=== PATIENT | female | born 1965 | race American Indian/Alaskan Native ===

== ENCOUNTER 2017-03-18 06:45 | Day surgery (SDC) | payer BC, OTHER ==
[~2017-03-18] VITALS: Ht 154.9 cm; Wt 108.9 kg
[~2017-03-18 06:45] MED LIST: BACTRIM DS TAB1 EACH PO; BENADRYL ALLERG25 MG PO; BYDUREON2 MG SUB-Q; CLARITIN10 MG PO; CLINDAMYCIN HC150 MG PO; DILTIAZEM ER240 MG PO; GLUCOPHAGE1000 MG PO; LANTUS100 UNITS/ SUB-Q; LIPITOR10 MG PO; NORCO 5-325 TA1 EACH PO; SINGULAIR10 MG PO
[2017-03-18] MEDS ORDERED: ASPIR-LOW81 MG PO (07:03)
--- NOTE | 2017-03-18 07:42 | NUR ---
03/18/17 0742 Amrita Flores report from jenni juan.
--- NOTE | 2017-03-19 14:14 | OR ---
[facility] [address], [place] [address] Signed DATE OF PROCEDURE: 03/18/17 PREOPERATIVE DIAGNOSES Screening. Internal hemorrhoids. POSTOPERATIVE DIAGNOSES External anal skin tags x2. Poor bowel prep. PROCEDURE: Limited colonoscopy (40 cm). ESTIMATED BLOOD LOSS: None. INDICATIONS Meghan is a 51-year-old diabetic female, who came to see me for a colonoscopy. She had a colonoscopy at age 40 because of anemia. She had some internal hemorrhoids at that time. She has no lower GI complaints recently. There is no family history of colon cancer or polyps. In the office, I gave her a pamphlet on colonoscopy and we reviewed the nature of the test along with the risks including, but not limited to gas, bloating, crampy abdominal pain, bleeding, perforation requiring surgery, and missed diagnosis. We also discussed the need for IV conscious sedation. She had done well with Versed and Fentanyl previously. She had expressed understanding and wished to proceed. PROCEDURE NOTE Meghan was taken into our endoscopy suite and placed in the left lateral decubitus position. She was given divided doses of 5 mg of Versed and 100 mcg of Fentanyl. A digital rectal exam was performed and this showed a couple of external skin tags. She did have some brown stool in the vault. She told us her prep did not kick in until late at night. We introduced the colonoscope and we carefully advanced it up to 40 cm. We met with copious amounts of liquid stool and we could not see any of the mucosal surfaces. Consequently, it was not safe to pass the scope any further. We had to abandon the colonoscopy. The plan is to repeat the colonoscopy after a double bowel prep. After this, the gas was suctioned out. The colonoscope removed. Meghan tolerated the procedure quite well. RECOMMENDATIONS Meghan will be rescheduled for her colonoscopy and she will need to do a double prep, one in the morning and one in the evening. Electronically Signed By: NIKITA VILLANUEVA MD 03/19/17 1414 PATIENT NAME: MEGHAN SANTOS OPERATIVE REPORT DATE OF : 65 PHYSICIAN: NIKITA VILLANUEVA MD REPORT #: [id number] REPORT IS CONFIDENTIAL AND NOT TO BE RELEASED WITHOUT AUTHORIZATION [address] [address] Signed MD HODA Matt/Modl /[id number] cc: MD Liam Puga MD Electronically Signed By: NIKITA VILLANUEVA MD 03/19/17 1414 PATIENT NAME: MEGHAN SANTOS OPERATIVE REPORT DATE OF : 65 PHYSICIAN: NIKITA VILLANUEVA MD REPORT #: [id number] REPORT IS CONFIDENTIAL AND NOT TO BE RELEASED WITHOUT AUTHORIZATION
[2017-05-07] MEDS ORDERED: CITALOPRAM HBR40 MG PO (16:34)
[2017-05-07] MEDS ORDERED: GLIMEPIRIDE4 MG PO (16:37)
[2017-05-07] MEDS ORDERED: HYDROCHLOROTHIA25 MG PO (16:37)
[2017-05-07] MEDS ORDERED: LEVOTHYROXINE88 MCG PO (16:38)
[2017-05-07] MEDS ORDERED: OMEGA 3 1,0001 EACH PO (16:39)
[2017-05-07] MEDS ORDERED: METOPROLOL SUCC25 MG PO (16:39)
[2017-05-07] MEDS ORDERED: RANITIDINE HCL150 MG PO (16:40)
[2017-05-07] MEDS ORDERED: ROSUVASTATIN CA10 MG PO (16:41)
[2017-05-07] MEDS ORDERED: TOLTERODINE TART4 MG PO (16:41)
[2017-05-07] MEDS ORDERED: VITAMIN D50000 UNI1 PO (16:42)
[2017-05-07] MEDS ORDERED: VICTOZA 2-0.6 MG/0.1 SUB-Q (16:42)
== END 2017-03-18 08:25 | disposition home or self-care (01) ==
LOC: OPS 06:45 → DS 06:45 → OPS 08:25
PROVIDERS: Colon & Rectal Surgery
PROC: 0DJD8ZZ Inspection of Lower Intestinal Tract, Via Natural or Artificial Opening Endoscopic (ICD-10-PCS; principal; 2017-03-18 06:45)
DX: K64.4 Residual hemorrhoidal skin tags (principal); K64.8 Other hemorrhoids; I10 Essential (primary) hypertension; J45.909 Unspecified asthma, uncomplicated; E78.5 Hyperlipidemia, unspecified; E03.9 Hypothyroidism, unspecified; E11.9 Type 2 diabetes mellitus without complications; E87.6 Hypokalemia; F43.22 Adjustment disorder with anxiety; F17.210 Nicotine dependence, cigarettes, uncomplicated; Z90.710 Acquired absence of both cervix and uterus; Z79.82 Long term (current) use of aspirin; Z79.899 Other long term (current) drug therapy; Z79.01 Long term (current) use of anticoagulants; Z98.818 Other dental procedure status; Z98.890 Other specified postprocedural states; Z88.0 Allergy status to penicillin; Z88.8 Allergy status to other drugs, medicaments and biological substances
CPT/HCPCS: 99152; J2250; J3010; J7120

== ENCOUNTER 2018-10-04 20:21 | Emergency (ER) | payer BC, OTHER ==
[~2018-10-04] VITALS: Ht 162.6 cm; Wt 108.9 kg
--- OUTSIDE RECORDS SUMMARY | ~2018-10-04 | XMS | Clinical Summary ---
Demographics + + + | Address | [address] | | | [place] [address] | + + + | Home Phone | | + + + | Preferred Language | Unknown | + + + | Marital Status | Unknown | + + + | Jehovah'S Witness Affiliation | Unknown | + + + | Race | Unknown | + + + | Ethnic Group | Unknown | + + + Author + + + | Author | [facility] | | | and [place] | + + + | Organization | [facility] | | | and [place] | [...] Team Providers + +------+ + | Care Hoof Trimmer Name | Role | Phone | + +------+ + | Prince Penny PA-C | PP | Unavailable | + +------+ + Allergies + + + + + + | Active Allergy | Reactions | Severity | Noted | Comments | | | | | Date | | + + + + + + | Penicillins | Other (See Comments) | Medium | 11/23/19 | Can't remember | | | | | 14 | | + + + + + + Medications + + + +---------+------+------+-------+ | Medication | Sig | Dispensed | Refills | Star | End | Statu | | | | | | t | Date | s | | | | | | Date | | | + + + +---------+------+------+-------+ | ibuprofen (ADVIL, | Take 200 mg by mouth | | 0 | | | Activ | | MOTRIN) 200 mg | as needed. | | | | | e | | tablet | | | | | | | + + + +---------+------+------+-------+ | LOVAZA 1 G capsule | Take by mouth 2 | | 0 | 03/1 | | Activ | | | times daily. | | | 5/20 | | e | | | | | | 14 | | | + + + +---------+------+------+-------+ | ranitidine | Take 150 mg by mouth | | 0 | 04/1 | | Activ | | (ZANTAC) 150 mg | nightly. | | | 8/20 | | e | | tablet | | | | 14 | | | + + + +---------+------+------+-------+ | metoprolol | Take 25 mg by mouth | | 0 | 03/0 | | Activ | | tartrate (LOPRESSOR) | Daily. | | | 5/20 | | e | | 25 mg tablet | | | | 14 | | | + + + +---------+------+------+-------+ | atorvaSTATin | Take 20 mg by mouth | | 0 | 06/0 | | Activ | | (LIPITOR) 20 mg | nightly. | | | 3/20 | | e | | tablet | | | | 14 | | | + + + +---------+------+------+-------+ | ergocalciferol | | | 0 | 06/0 | | Activ | | (VITAMIN D-2) 50,000 | | | | 3/20 | | e | | units capsule | | | | 14 | | | + + + +---------+------+------+-------+ | montelukast | Take 10 mg by mouth | | 0 | 06/0 | | Activ | | (SINGULAIR) 10 mg | nightly. | | | 3/20 | | e | | tablet | | | | 14 | | | + + + +---------+------+------+-------+ | KLOR-CON 10 10 MEQ | Take 10 mEq by mouth | | 0 | 06/0 | | Activ | | CR tablet | Daily. | | | 3/20 | | e | | | | | | 14 | | | + + + +---------+------+------+-------+ | BYDUREON 2 MG SUSR | Inject 2 mg as | | 0 | 05/2 | | Activ | | | directed every 7 | | | 2/20 | | e | | | days. | | | 14 | | | + + + +---------+------+------+-------+ | OMEGA 3 1000 MG | | | 0 | 08/1 | | Activ | | CAPS | | | | 2/20 | | e | | | | | | 14 | | | + + + +---------+------+------+-------+ | LANTUS 100 UNIT/ML | | | 0 | 07/2 | | Activ | | injection | | | | 8/20 | | e | | | | | | 14 | | | + + + +---------+------+------+-------+ | glimepiride | | | 0 | 07/2 | | Activ | | (AMARYL) 4 mg tablet | | | | 8/20 | | e | | | | | | 14 | | | + + + +---------+------+------+-------+ | LORazepam (ATIVAN) | | | 0 | 08/2 | | Activ | | 0.5 mg tablet | | | | 1/20 | | e | | | | | | 14 | | | + + + +---------+------+------+-------+ | Potassium Chloride | | | 0 | 07/2 | | Activ | | (KLOR-CON 10 PO) | | | | 8/20 | | e | | | | | | 14 | | | + + + +---------+------+------+-------+ | DETROL LA 4 MG 24 | | | 0 | 07/2 | | Activ | | hr capsule | | | | 8/20 | | e | | | | | | 14 | | | + + + +---------+------+------+-------+ | citalopram | | | 0 | 10/0 | | Activ | | (CELEXA) 40 mg | | | | 1/20 | | e | | tablet | | | | 14 | | | + + + +---------+------+------+-------+ | | | | 0 | 10/0 | | Activ | | hydrochlorothiazide | | | | 1/20 | | e | | 25 mg tablet | | | | 14 | | | + + + +---------+------+------+-------+ | SINGULAIR 10 MG | | | 0 | 10/0 | | Activ | | tablet | | | | 1/20 | | e | | | | | | 14 | | | + + + +---------+------+------+-------+ | metFORMIN | | | 0 | 09/2 | | Activ | | (GLUCOPHAGE) 500 mg | | | | 7/20 | | e | | tablet | | | | 14 | | | + + + +---------+------+------+-------+ | diltiazem (DILACOR | | | 0 | 09/0 | | Activ | | XR) 240 mg 24 hr | | | | 2/20 | | e | | capsule | | | | 14 | | | + + + +---------+------+------+-------+ | diltiazem (TIAZAC) | | | 0 | 09/0 | | Activ | | 300 MG 24 hr | | | | 2/20 | | e | | capsule | | | | 14 | | | + + + +---------+------+------+-------+ | Levothyroxine | | | 0 | 08/2 | | Activ | | Sodium 88 MCG CAPS | | | | 6/20 | | e | | | | | | 14 | | | + + + +---------+------+------+-------+ Active Problems + + + | Problem | Noted Date | + + + | Carpal tunnel syndrome of right wrist | 11/22/2013 | + + + Family History + + +------+ + | Medical History | Relation | Name | Comments | + + +------+ + | Diabetes | Brother | | | + + +------+ + | Heart disease | Father | | | + + +------+ + | Kidney disease | Father | | | + + +------+ + | Cancer | Mother | | | + + +------+ + | Diabetes | Sister | | | + + +------+ + + +------+ + + | Relation | Name | Status | Comments | + +------+ + + | Brother | | Alive | | + +------+ + + | Father | | Alive | | + +------+ + + | Mother | | | | + +------+ + + | Sister | | Alive | | + +------+ + + Social History + + + [...] + +---------+ + | Alcohol Use | Drinks/We | oz/Week | Comments | | | ek | | | + + +---------+ + | Yes | | | 1 drink every 3 month | + + +---------+ + + [...] recent travel history available. | + + Last Filed Vital Signs + + + + | Vital Sign | Reading | Time Taken | + + + + | Blood Pressure | 116/67 | 01/26/2014 1230 PDT | + + + + | Pulse | 85 | 01/26/2014 1230 PDT | + + + + | Temperature | 37.2 C (99 F) | 03/17/2014 1056 PDT | + + + + | Respiratory Rate | 18 | 01/26/2014 1230 PDT | + + + + | Oxygen Saturation | 99% | 01/26/2014 1230 PDT | + + + + | Inhaled Oxygen | - | - | | Concentration | | | + + + + | Weight | 106.1 kg (234 lb) | 01/26/2014899 PDT | + + + + | Height | 162.6 cm (5' 4") | 01/26/2014899 PDT | + + + + | Body Mass Index | 40.17 | 01/26/2014899 PDT | + + + + Plan of Treatment + + + + + | Health Maintenance | Due Date | Last Done | Comments | + + + + + | Vaccine: | | | | | Dtap/Tdap/Td (1 - | 5 | | | | Tdap) | | | | + + + + + | Cervical Cancer | | | | | Screening (Pap) | 6 | | | + + + + + | Vaccine: Zoster (1 | | | | | of 2) | 6 | | | + + + + + | Vaccine: Influenza | | | | | (Season Ended) | 9 | | | + + + + + Results Not on filefrom Last 3 Months Insurance + +--------+ +--------+ +---------+--------+ | Payer | Benefi | Subscriber | Effect | Phone | Address | Type | | | t Plan | ID | toro | | | | | | / | | Dates | | | | | | Group | | | | | | + +--------+ +--------+ +---------+--------+ | [employer] | [employer] | [id number] | 06/16/19 | [phone] | | PPO | | | [place] BCBS | 7 | 14-Pre | 8 | | | [place] | [place] | | | | | | [place]PO | | | | | | + +--------+ +--------+ +---------+--------+ | [employer] | IHS | [id number] | 09/15/19 | | | Indemn | | SERVICE | YELLOW | | 14-Pre | | | ity | | | [place] | | sent | | | | + +--------+ +--------+ +---------+--------+ + +--------+ +--------+ + + | Guarantor Name | Accoun | Relation to | Date | Phone | Billing Address | | | t Type | Patient | of | | | | | | | | | | + +--------+ +--------+ + + | Meghan Ledesma | Person | Self [birth year] | [address] | | | al/Fam | | 1966 | [phone] | [place] [address] | | | jovan | | | 7 (Home) | | + +--------+ +--------+ + + Advance Directives Patient has advance care planning documents, and code status on file. For more information, please contact:[facility] and [place] [address] + + + + + | Code Status | Date | Date | Comments | | | Activated | Inactivated | | + + + + + | Full Code | 01/26/2014 | 01/26/2014 | | | | 12:27 | 14:52 | | + + + + +
--- OUTSIDE RECORDS SUMMARY | ~2018-10-04 | XMS | Clinical Summary ---
Demographics + + + | Address | [address] | | | [place] [address] | + + + | Home Phone | | + + + | Preferred Language | Unknown | + + + | Marital Status | Single | + + + | Jehovah'S Witness Affiliation | EPI | + + + [...] Phone | + + +---------+ + | EDI SANTOS | ECON | Unknown | | + + +---------+ + Care Team Providers + +------+ + | Care Lidding Machine Operator Name | Role | Phone | + +------+ + PP | Unavailable | + +------+ + Source Comments [facility] is fully live on both [facility] and [facility] Allergies Not on File Current Medications Not on file Active Problems Not on file Social History + +-------+ +--------+------+ | Tobacco [...] on file | | + + + Plan of Treatment + + + + + | Health Maintenance | Due Date | Last Done | Comments | + + + + + | Influenza (Flu) | | | | | vaccination (#1) | 8 | | | + + + + + Results Not on filefrom Last 3 Months"
--- OUTSIDE RECORDS SUMMARY | ~2018-10-04 | XMS | Clinical Summary ---
Demographics + + + | Address | [address] | | | [place] [address] | + + + | Home Phone | | + + + | Preferred Language | Unknown | + + + | Marital Status | Unknown | + + + | Presybeterian Affiliation | Unknown | + + + | Race | Unknown | + + + | Ethnic Group | Unknown | + + + Author + + + | Author | [facility] | | | and [place] | + + + | Organization | [facility] | | | and [place] | [...] Team Providers + +------+ + | Care Vegetable Grower Name | Role | Phone | + [...] +--------+ +---------+--------+ | [employer] | [employer]ENC | [id number] | 06/16/19 | [phone] | | PPO | | | E BCBS | 7 | 14-Pre | 8 | | | | | [place] | | [place] | | | | | | [place]PO | | | | | | + +--------+ +--------+ +---------+--------+ | [employer] | IHS | [id number] | 09/15/19 | | | Indemn | [...] | 1966 | [phone] | [place] [address] | | | jovan | | | 7 (Home) | | + +--------+ +--------+ + + Advance Directives Patient has advance care planning documents, and code status on file. For more information, please contact:[facility] and [place] [phone] + + + + + | Code Status | Date | Date | Comments | | | Activated | Inactivated | | + + + + + | Full Code | 01/26/2014 | 01/26/2014 | | | | 12:27 | 14:52 | | + + + + +
--- OUTSIDE RECORDS SUMMARY | ~2018-10-04 | XMS | Clinical Summary ---
Demographics + + + | Address | [address] | | | [place] [address] | + + + | Home Phone | | + + + | Preferred Language | Unknown | + + + | Marital Status | Single | + + + | Islam Affiliation | EPI | + + + [...] Team Providers + +------+ + | Care Pharmacy Specialist Name | Role | Phone | + +------+ + PP | Unavailable | + +------+ + Source Comments [facility] is fully live on both [facility] and [facility] InPatient.[facility] Allergies Not on File Current Medications Not [...]
[~2018-10-04 20:21] MED LIST changes: +ASPIR-LOW81 MG PO; +CITALOPRAM HBR40 MG PO; +GLIMEPIRIDE4 MG PO; +HYDROCHLOROTHIA25 MG PO; +LEVOTHYROXINE88 MCG PO; +METOPROLOL SUCC25 MG PO; +OMEGA 3 1,0001 EACH PO; +RANITIDINE HCL150 MG PO; +ROSUVASTATIN CA10 MG PO; +TOLTERODINE TART4 MG PO; +VICTOZA 2-0.6 MG/0.1 SUB-Q; +VITAMIN D50000 UNI1 PO
[2018-10-04] MEDS ORDERED: BACTRIM DS TAB1 EACH PO (21:36)
[2018-10-04] MEDS ORDERED: NORCO 5-325 TA1 EACH PO (21:36)
== END 2018-10-04 22:07 | disposition home or self-care (01) ==
LOC: ED 20:21
PROC: 0H9TXZZ (ICD-10-PCS; principal; 2018-10-04)
DX: N61.1 Abscess of the breast and nipple (principal); E11.9 Type 2 diabetes mellitus without complications; I10 Essential (primary) hypertension; F17.200 Nicotine dependence, unspecified, uncomplicated; Z88.8 Allergy status to other drugs, medicaments and biological substances; Z88.0 Allergy status to penicillin; Z79.4 Long term (current) use of insulin; Z79.899 Other long term (current) drug therapy; Z79.82 Long term (current) use of aspirin; Z23 Encounter for immunization
CPT/HCPCS: 10060; 90471; 90715; 99283-25

== ENCOUNTER 2019-02-11 21:27 | Emergency (ER) | payer BC, OTHER ==
[~2019-02-11] VITALS: Ht 162.6 cm; Wt 102.1 kg
[~2019-02-11 21:27] MED LIST changes: +CLEOCIN HCL300 MG PO
--- OUTSIDE RECORDS SUMMARY | 2019-02-11 21:30 | XMS ---
PreManage Notification: KARISSA SANTOS Security Digital Project Coordinator Events No recent Security Events currently on file CRITERIA MET - MACIE[facility] CARE PROVIDERS GUILLERMO SALVADOR Internal Medicine Current PHONE: Unknown Harish Estevez MD Primary Care Current PHONE: Unknown GUILLERMO SALVDAOR Primary Care Current PHONE: Unknown orbilly Alston or Sales Management Intern Current PHONE: Unknown Bronson ESTEVEZ Current PHONE: Unknown Stephanie has no Care Guidelines for this patient. E.DKathleen VISIT COUNT (12 MO.) 2 LENORE Soto TOTAL 2 NOTE: Visits indicate total known visits. ED/UCC VISIT TRACKING (12 MO.) 02/11/2019 21:27 L[facility] Etienne [place] TYPE: Emergency COMPLAINT: - LEFT HIP PAIN, UNKNOWN INJURY 10/04/2018 20:22 [facility] Et[facility] [place] TYPE: Emergency COMPLAINT: - POSS ABCESS ON R BREAST DIAGNOSES: - Allergy status to penicillin - Nicotine dependence, unspecified, uncomplicated - Allergy status to other drugs, medicaments and biological substances status - assisted (current) use of aspirin - Type 2 diabetes mellitus without complications - assisted (current) use of insulin - Other medical terminologist (current) drug therapy - Essential (primary) hypertension - Abscess of the breast and nipple - Encounter for immunization INPATIENT VISIT TRACKING (12 MO.) No inpatient visits to display in this time frame [email or web address]
[2019-02-11] MEDS ORDERED: BACTRIM DS TAB1 EACH PO (22:42)
== END 2019-02-11 22:50 | disposition home or self-care (01) ==
LOC: ED 21:27
DX: M70.72 Other bursitis of hip, left hip (principal); L02.211 Cutaneous abscess of abdominal wall; I10 Essential (primary) hypertension; E11.9 Type 2 diabetes mellitus without complications; F17.200 Nicotine dependence, unspecified, uncomplicated; Z88.0 Allergy status to penicillin; Z88.8 Allergy status to other drugs, medicaments and biological substances; Z79.4 Long term (current) use of insulin; Z79.82 Long term (current) use of aspirin; Z79.899 Other long term (current) drug therapy
CPT/HCPCS: 99283

== ENCOUNTER 2019-04-25 08:26 | Emergency (ER) | payer BC, OTHER ==
[~2019-04-25] VITALS: Ht 162.6 cm; Wt 102.1 kg
--- OUTSIDE RECORDS SUMMARY | ~2019-04-25 | XMS | Encounter Summary ---
Demographics + + + | Address | [address] | | | [place] [address] | + + + | Home Phone | | + + + | Preferred Language | Unknown | + + + | Marital Status | Single | + + + | Christianity Affiliation | EPI | + + + | Race | White | + + + | Ethnic Group | or | + + + Author + + + | Organization | Unknown | + + + | Address | Unknown | + + + | Phone | Unavailable | + + + Support + + +---------+ + | Name | Relationship | Address | Phone | + + +---------+ + | Julisa Ledesma | ECON | Unknown | | + + +---------+ + Care Team Providers + +------+ + | Care Candy Bar Attendant Name | Role | Phone | + +------+ + PCP | Unavailable | + +------+ + Encounter Details +--------+ + + + + | Date | Type | Department | Care Team | Description | +--------+ + + + + | 01/22/ | [facility] | | Letter, Clinic | Letters | | 2004 | scribed | | | | +--------+ + + + + Social History + +-------+ +--------+------+ | Tobacco Use | Types | Packs/Day | Years | Date | | | | | Used | | + +-------+ +--------+------+ | Never Assessed | | | | | + +-------+ +--------+------+ + + + | Sex Assigned at | Date Recorded | | | | + + + | Not on file | | + + + + + + + | Job Start Date | Occupation | Industry | + + + + | Not on file | Not on file | Not on file | + + + + + + + + | Travel History | Travel Start | Travel End | + + + + + + | No recent travel history available. | + + documented as of this encounter Progress Notes Interface, Airplane Navigator In - 01/13/2005 7:32 AM PDT [place] [address] [facility] [place], [place] [id number] or January 23, 2004 Armida Estevez M.D. [facility] [address] [place] [address] RE: MEGHAN LEDESMA MR #: [id number] Dear Dr. Estevez: As you know, we are continuing to follow Ms. Meghan Ledesma. 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 Indeed, since starting the Zyrtec, Zantac, and Singulair therapy and having switched from an EDER inhibitor to a calcium channel ramon, she has been essentially asymptomatic. She notes only a single symptomatic "breakthrough" episode since her last visit 3 months ago and specifically reports markedly increased exercise tolerance. Initially, she was able to tolerate well under 10 minutes of exercise of moderate strenuousness before experiencing severe urticaria, and now she tolerates at least 20 to 30 minutes with only some mild pruritus beginning towards the end of that 30 minutes of moderate substantial exertion. She reports that all of her medications have been well tolerated. She also reports recent travel to [place], and she indicates that it was extremely hot where she was staying in [facility]. Despite the very high temperatures which previously she would have associated with substantial flaring of her urticaria, now on these new medications, she was able to tolerate this well without any apparent difficulty and is quite pleased in this regard. I did receive your letter by FAX today with regard to her hypertension. She does remain hypertensive at today's visit with blood pressure 160/90 despite her diltiazem and hydrochlorothiazide. Certain antihypertensive agents do raise various concerns with regard to her urticaria, and this will be discussed in detail below. Medications: As noted, she remains on Zyrtec 10 mg daily, Zantac 300 mg daily, and Singulair 10 mg daily, all taken in the evening. She is on hydrochlorothiazide and diltiazem for her hypertension. Her only other medications are atorvastatin and oral contraceptives. She continues to carry an EpiPen p.r.n. angioedema/anaphylaxis (no use). ALLERGIES: PENICILLIN. Objective/data: Vital signs: Pulse 74, respirations 16, and blood pressure 160/90. Exam: She is well appearing and in no acute distress. Skin is unremarkable, specifically no urticaria, no angioedema, and no dermatographism noted at today's clinic visit. Her general medical exam is essentially otherwise unremarkable apart from obesity and is as per chart. 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 Recommendations: 1. I am pleased that she has done quite well on her current medication regimen and recommend that she simply continue her current care. She was given prescription refills for her Zyrtec, Zantac, and Singulair. 2. As noted, I do agree that it was beneficial to replace her EDER inhibitor with a calcium channel ramon from the point of view of her urticaria. As noted, she does remain hypertensive at today's clinic visit and with regard to your question of additional agents, I do agree that continuing to avoid EDRE inhibitors and beta blockers would be important if at all possible. With regard to angiotensin-receptor blockers (ARB's), less is known with regard to these agents and possible urticaria, as they are relatively new medications. My experience suggests that these are significantly less likely to increase her urticarial symptoms than either beta blockers or EDER inhibitors, but this is still possible. I have seen a few cases of increased urticarial symptoms presumed associated with the use of angiotensin-receptor blockers. I think it would be reasonable to give this a try, but if so, I would recommend following her clinically rather closely particularly for the first few weeks after starting these agents. If her symptoms do appear to increase, other alternatives may need to be considered. 3. The patient education was again provided and reinforced with regard to issues related to cholinergic urticaria including course, natural history and management, including medications (benefits, risks, side effects, alternatives, medication tapering protocol, etc.) 4. She should return to the routine care of her primary care health provider but is welcome to return to our clinic at any time. I did recommend that she re-contact us should her symptoms recur/worsen. If you or the patient have any questions, please feel free to call us at any time. Again, thank you for allowing us to continue to participate in the care of your patient. Sincerely yours, Damion Hyde M.D. RANDALL GUZMAN [id number] / [id number] / [id number] / Tdocumented in this encounter Plan of Treatment Not on filedocumented as of this encounter Visit Diagnoses Not on filedocumented in this encounter
--- OUTSIDE RECORDS SUMMARY | ~2019-04-25 | XMS | Encounter Summary ---
Demographics + + + | Address | [address] | | | [place] [address] | + + + | Home Phone | | + + + | Preferred Language | Unknown | + + + | Marital Status | Unknown | + + + | Confucianism Affiliation | Unknown | + + + | Race | Unknown | + + + | Ethnic Group | Unknown | + + + Author + + + | Author | [facility] | | | and [place] | + + + | Organization | [facility] | | | and [place] | + + + | Address | Unknown | + + + | Phone | Unavailable | + + + Support + + +---------+ + | Name | Relationship | Address | Phone | + + +---------+ + | Karishma Ledesma | ECON | Unknown | | + + +---------+ + Care Team Providers + +------+ + | Care Cardroom Hand Name | Role | Phone | + +------+ + | Prince Penny PA-C | PCP | | + +------+ + Reason for Visit Auth/Cert +--------+--------+ + + + + | Status | Reason | Specialty | Diagnoses / | Referred By | Referred To | | | | | Procedures | Contact | Contact | +--------+--------+ + + + + | Closed | | | Diagnoses | | | | | | | Carpal | | | | | | | tunnel | | | | | | | syndrome, | | | | | | | right | | | | | | | Carpal | | | | | | | tunnel | | | | | | | syndrome, | | | | | | | right | | | | | | | Procedures | | | | | | | [facility] | | | | | | | MEDIAN | | | | | | | N/CARPAL | | | | | | | TUNNEL SURG | | | | | | | RELEASE | | | | | | | CARPAL | | | | | | | TUNNEL | | | +--------+--------+ + + + + Encounter Details +--------+---------+ + + + | Date | Type | Department | Care Team | Description | +--------+---------+ + + + | 01/26/ | Surgery | [facility] | [facility] | RELEASE CARPAL | | 2013 | | [facility] | MD Amor Brown | TUNNEL - RIGHT | | | | [address] | [place] | | | | | [place] | [address] | | | | | [address] | | | | | | [phone] | | | +--------+---------+ + + + Social History + + + +--------+------+ | Tobacco Use | Types | Packs/Day | Years | Date | | | | | Used | | + + + +--------+------+ | Current Some Day | Cigarettes | 0.1 | 5 | | | Smoker | | | | | + + + +--------+------+ + +---+---+---+ | Smokeless Tobacco: | | | | | Never Used | | | | + +---+---+---+ + + +---------+ + | Alcohol Use | Drinks/Week | oz/Week | Comments | + + +---------+ + | Yes | | | 1 drink every 3 | | | | | month | + + +---------+ + + + + | Sex Assigned at [...] + + documented as of this encounter Last Filed Vital Signs + + + + + | Vital Sign | Reading | Time Taken | Comments | + + + + + | Blood Pressure | 116/67 | 01/26/2014 12:30 PM | | | | | PDT | | + + + + + | Pulse | 85 | 01/26/2014 12:30 PM | | | | | PDT | | + + + + + | Temperature | 36.5 C (97.7 F) | 01/26/2014 11:20 AM | | | | | PDT | | + + + + + | Respiratory Rate | 18 | 01/26/2014 12:30 PM | | | | | PDT | | + + + + + | Oxygen Saturation | 99% | 01/26/2014 12:30 PM | | | | | PDT | | + + + + + | Inhaled Oxygen | - | - | | | Concentration | | | | + + + + + | Weight | 106.1 kg (234 lb) | 01/26/2014 9:00 AM | | | | | PDT | | + + + + + | Height | 162.6 cm (5' 4") | 01/26/2014 9:00 AM | | | | | PDT | | + + + + + | Body Mass Index | 40.17 | 01/26/2014 9:00 AM | | | | | PDT | | + + + + + documented in this encounter Discharge Instructions Instructions Analilia Morgan RN - 01/26/2014Formatting of this note might be different f rom the original. Please keep appointment in Dr Santos's office as already scheduled. Keep splint on right wrist and keep right wrist dry. May discard arm sling in one to two days. Discharge Instructions for Carpal Tunnel Repair You had a carpal tunnel repair procedure to help relieve the symptoms of carpal tunnel synd josé antonio. In carpal tunnel syndrome, a nerve in the wrist is compressed and irritated. This caus es numbness and pain in the fingers and hand. Carpal tunnel repair relieves the compression of the nerve. Here are instructions that will help you care for yourarm and wristwhen yo u are at home. Home Care Avoid gripping objects tightly or lifting with your affected arm. Wear your bandage, splint, or cast as directed by your doctor. Always keep the dressing, splint, or cast dry and clean. When showering, cover your hand and wrist with plastic and tape it securley to your sk into always keep the dressing, splint, or cast dry. Shower as necessary. Use an ice pack or bag of frozen peas or something similar wrapped in a thin towel on your wrist to reduce swelling for the [id number]. Leave the ice pack on [id number]; then take it off [id number]. Repeat as needed. Keep your arm elevated above your heart [id number] after surgery. Do the exercises you learned in the hospital, or as instructed by your doctor. Take pain medication as directed. Don t drive until your doctor says it s OK. Never drive while you are taking narcoti c pain medication. Ask your doctor when youcan return to work. If your job requires heavy lifting, you ma y not be able to begin working again for several weeks. Follow-Up Make a follow-up appointment as directed by our staff. When to Seek Medical Attention Call 911 right awayif you have any of the following: Chest pain Shortness of breath Otherwise, call your doctor immediately if you have any of the following: A splint, cast, or dressing that has gotten wet Increased bleeding or drainage from the incision (cut) Opening of the incision Fever [id number](38.9C) taken by mouth, or shaking chills Any new numbness in the fingers or thumb Blue hand or fingers Increased pain with or without activity Increased redness, tenderness, or swelling of the incision [id number] [facility], [address] [place] [address], [place] [address]. All rights reserve d. This information is not intended as a substitute for professional medical care. Always fo llow your healthcare professional's instructions. Anesthesia: After Your Surgery You ve just had surgery. During surgery, you received medication called anesthesia to deniz p you comfortable and pain-free. After surgery, you may experience some pain or nausea. This is normal. Here are some tips for feeling better and recovering after surgery. Stay on schedule with your medication. Going Home Your doctor or nurse will show you how to take care of yourself when you go home. He or she will also answer your questions. Have an adult family member or friend drive you home. For the first 24 hours after your surgery: Do not drive or use heavy equipment. Do not make important decisions or sign legal documents. Avoid alcohol. Have someone stay with you, if needed. He or she can watch for problems and help keep yo u safe. Be sure to keep all follow-up doctor s appointments. And rest after your procedure for as long as your doctor tells you to. Coping with Pain If you have pain after surgery, pain medication will help you feel better. Take it as direc nura, before pain becomes severe. Also, ask your doctor or pharmacist about other ways to con trol pain, such as with heat, ice, and relaxation. And follow any other instructions your riley rgeon or nurse gives you. Tips for Taking Pain Medication To get the best relief possible, remember these points: Pain medications can upset your stomach. Taking them with a little food may help. Most pain relievers taken by mouth need at least 20 to 30 minutes to take effect. Taking medication on a schedule can help you remember to take it. Try to time your medic ation so that you can take it before beginning an activity, such as dressing, walking, or si tting down for dinner. Constipation is a common side effect of pain medications. Contact your doctor before jackie ing any medications like laxatives or stool softeners to help relieve constipation. Also ask about any dietary restrictions, because drinkinglots of fluids andeating foodslikef ruits and vegetables that are high in fiber can also help. Remember, don t take laxatives unless your surgeon has prescribed them. Mixing alcohol and pain medication can cause dizziness and slow your breathing. It can e ryan be fatal. Don t drink alcohol while taking pain medication. Pain medication can slow your reflexes. Don t drive or operate machinery while taking pain medication. If your health care provider advises you to take acetaminophen, the generic name for Tyleno l and other brand-name pain relievers, to help relieve your pain, ask for a daily dose. Bety mber that acetaminophen or other pain relievers may interact with prescription medicines or other hhwv-myb-lfnhior (OTC) drugs. The FDA recommends reading OTC medication labels careful ly to clearly understand the list of active ingredients, directions, and any precautions to help avoid taking too muchacetaminophen. If you have questions, ask your pharmacist or a [facility] care provider. Managing Nausea Some people have an upset stomach after surgery. This is often due to anesthesia, pain, azalea n medications, or the stress of surgery. The following tips will help you manage nausea and get good nutrition as you recover. If you were on a special diet before surgery, ask your do ctor if you should follow it during recovery. These tips may help: Don t push yourself to eat. Your body will tell you what to eat and when. Start off with clear liquids and soup. They are easier to digest. Progress to semisolids (mashed potatoes, applesauce, and gelatin) as you feel ready. Slowly move to solid foods. Don t eat fatty, rich, or spicy foods at first. Don t force yourself to have three large meals a day. Instead, eat smaller amounts mor e often. Take pain medications with a small amount of solid food, such as crackers or toast to av oid nausea. Call Your Surgeon If You still have pain an hour after taking medication (it may not be strong enough). You feel too sleepy, dizzy, or groggy (medication may be too strong). You have side effects like nausea, vomiting, or skin changes (rash, itching, or hives). [id number] [facility], [address] [place] [address], [place] [address]. All rights reserve d. This information is not intended as a substitute for professional medical care. Always fo llow your healthcare professional's instructions. documented in this encounter Medications at Time of Discharge + + + +---------+ + + | Medication | Sig | Dispensed | Refills | Start | End Date | | | | | | Date | | + + + +---------+ + + | atorvaSTATin | Take 20 mg by mouth | | 0 | 11/17/19 | | | (LIPITOR) 20 mg | nightly. | | | 14 | | | tablet | | | | | | + + + +---------+ + + | BYDUREON 2 MG SUSR | Inject 2 mg as | | 0 | 11/05/19 | | | | directed every 7 | | | 14 | | | | days. | | | | | + + + +---------+ + + | DETROL LA 4 MG 24 | | | 0 | 01/11/20 | | | hr capsule | | | | 14 | | + + + +---------+ + + | ergocalciferol | | | 0 | 11/17/19 | | | (VITAMIN D-2) 50,000 | | | | 14 | | | units capsule | | | | | | + + + +---------+ + + | glimepiride | | | 0 | 01/11/20 | | | (AMARYL) 4 mg tablet | | | | 14 | | + + + +---------+ + + | ibuprofen (ADVIL, | Take 200 mg by mouth | | 0 | | | | MOTRIN) 200 mg | as needed. | | | | | | tablet | | | | | | + + + +---------+ + + | KLOR-CON 10 10 MEQ | Take 10 mEq by mouth | | 0 | 11/17/19 | | | CR tablet | Daily. | | | 14 | | + + + +---------+ + + | LANTUS 100 UNIT/ML | | | 0 | 01/11/20 | | | injection | | | | 14 | | + + + +---------+ + + | LOVAZA 1 G capsule | Take by mouth 2 | | 0 | / | | | | times daily. | | | 14 | | + + + +---------+ + + | metoprolol | Take 25 mg by mouth | | 0 | /11/02 | | | tartrate (LOPRESSOR) | Daily. | | | 14 | | | 25 mg tablet | | | | | | + + + +---------+ + + | montelukast | Take 10 mg by mouth | | 0 | 11/17/19 | | | (SINGULAIR) 10 mg | nightly. | | | 14 | | | tablet | | | | | | + + + +---------+ + + | OMEGA 3 1000 MG | | | 0 | 01/26/20 | | | CAPS | | | | 14 | | + + + +---------+ + + | Potassium Chloride | | | 0 | 01/11/20 | | | (KLOR-CON 10 PO) | | | | 14 | | + + + +---------+ + + | ranitidine | Take 150 mg by mouth | | 0 | 10/02/19 | | | (ZANTAC) 150 mg | nightly. | | | 14 | | | tablet | | | | | | + + + +---------+ + + | Cholecalciferol | | | 0 | 01/11/20 | | | ([facility] VIT D 5000 | | | | 14 | 4 | | HIGH-POTENCY PO) | | | | | | + + + +---------+ + + | citalopram | Take 40 mg by mouth | | 0 | 11/17/19 | | | (CELEXA) 40 mg | Daily. | | | 14 | 4 | | tablet | | | | | | + + + +---------+ + + | DETROL LA 4 MG 24 | Take 4 mg by mouth | | 0 | 11/18/19 | | | hr capsule | Daily. | | | 14 | 4 | + + + +---------+ + + | diltiazem (DILACOR | Take 240 mg by mouth | | 0 | 11/17/19 | | | XR) 240 mg 24 hr | Daily. | | | 14 | 4 | | capsule | | | | | | + + + +---------+ + + | diltiazem (TIAZAC) | Take 300 mg by mouth | | 0 | 11/17/19 | | | 300 MG 24 hr | Daily. | | | 14 | 4 | | capsule | | | | | | + + + +---------+ + + | glimepiride | Take 4 mg by mouth | | 0 | 09/07/19 | | | (AMARYL) 4 mg tablet | every morning | | | 14 | 4 | | | (before breakfast). | | | | | + + + +---------+ + + | | 25 mg Daily. | | 0 | 11/17/19 | | | hydrochlorothiazide | | | | 14 | 4 | | 25 mg tablet | | | | | | + + + +---------+ + + | | Take 1-2 tablets by | 40 | 0 | 01/27/20 | | | HYDROcodone-acetamin | mouth every 6 hours | tablet | | 14 | 4 | | ophen (NORCO) | as needed for Pain | | | | | | 7.5-325 mg per | for up to 10 days. | | | | | | tablet | | | | | | + + + +---------+ + + | | | | 0 | 01/27/20 | | | Hydrocodone-Acetamin | | | | 14 | 4 | | ophen 7.5-300 MG | | | | | | | TABS | | | | | | + + + +---------+ + + | Insulin Glargine | Inject 15 Units | | 0 | 10/15/19 | | | (LANTUS SOLOSTAR SC) | under the skin | | | 14 | 4 | | | nightly. | | | | | + + + +---------+ + + | levothyroxine | Take 88 mcg by mouth | | 0 | 11/17/19 | | | (SYNTHROID, | every morning | | | 14 | 4 | | LEVOTHROID) 88 mcg | (before breakfast). | | | | | | tablet | | | | | | + + + +---------+ + + | LORazepam (ATIVAN) | Take 0.5 mg by mouth | | 0 | 10/30/19 | | | 0.5 mg tablet | every 6 hours as | | | 14 | 4 | | | needed. | | | | | + + + +---------+ + + | metFORMIN | Take 500 mg by mouth | | 0 | 11/20/19 | | | (GLUCOPHAGE) 500 mg | daily (with | | | 14 | 4 | | tablet | breakfast). | | | | | + + + +---------+ + + | ranitidine | | | 0 | 01/11/20 | | | (ZANTAC) 150 MG | | | | 14 | 4 | | capsule | | | | | | + + + +---------+ + + documented as of this encounter Plan of Treatment + +------+--------+ + + | Name | Type | Priori | Associated Diagnoses | Order Schedule | | | | ty | | | + +------+--------+ + + | Basic Metabolic | Lab | STAT | | As Needed for 1 | | Panel | | | | Occurrences starting | | | | | | 01/26/2014 | + +------+--------+ + + documented as of this encounter Procedures + +--------+ + + + | Procedure Name | Priori | Date/Time | Associated Diagnosis | Comments | | | ty | | | | + +--------+ + + + | RELEASE CARPAL | | 01/26/2014 | Carpal tunnel | | | TUNNEL | | 10:14 AM | syndrome, right | | | | | PDT | | | + +--------+ + + + | POC GLUCOSE | Routin | 01/26/2014 | | Results for this | | | e | 10:12 AM | | procedure are in the | | | | PDT | | results section. | + +--------+ + + + documented in this encounter Results POC Glucose (01/26/2014 10:12 AM PDT) + +---------+ + + + | Component | Value | Ref Range | Performed | Pathologist | | | | | At | Signature | + +---------+ + + + | Glucose, | 241 (H) | 79 - 150 mg/dL | [facility] | | [facility] | | | [facility] | | [facility] | | | | [facility] - | | | | | | LABORATORY | | + +---------+ + + + + + | Specimen | + + | Blood | + + + + + + + | Performing | Address | City/State/Zipcode | Phone Number | | Organization | | | | + + + + + | [facility] | [address] | [place] | [phone] | | [facility] | | [address] | | | - LABORATORY | | | | + + + + + | [facility] | [address] | [place] | | | [facility] | | [address] | | | - LABORATORY | | | | + + + + + Urinalysis with Microscopic with Culture if Indicated (01/24/2014 10:37 AM PDT) + + + + + + | Component | Value | Ref Range | Performed | Pathologist | | | | | At | Signature | + + + + + + | Color | Yellow | Light Yellow, | [facility] | | | | | Yellow | [facility] | | | | | | [facility] | | | | | | [facility] - | | | | | | LABORATORY | | + + + + + + | Clarity | Clear | Clear | [facility] | [facility] | [facility] | | | | | [facility] - | | | | | | LABORATORY | | + + + + + + | pH, Urine | 6.0 | 5.0 - 8.0 | [facility] | | | | | [facility] | | [facility] | [facility] | | | | | | C[facility] - | | | | | | LABORATORY | | + + + + + + | Specific | 1.010 | 1.001 - 1.030 | [facility] | | | [place] | | | [facility] | | | | | | [facility] | | | | | | CENTER - | | | | | | LABORATORY | | + + + + + + | Protein, | Negative | Negative, | [facility] | | | Urine | | Trace, 30 mg/dL | [facility] | | | | | | [facility]ICAL | | | | | | CENTER - | | | | | | LABORATORY | | + + + + + + | Blood, | Large (A) | Negative | [facility] | | | Urine | | | [facility] | | | | | | [facility] | | | | | | CENTER - | | | | | | LABORATORY | | + + + + + + | Glucose, | >1000 mg/dL (A) | Negative | [facility] | | | Urine | | | [facility] | | | | | | [facility] | | | | | | CENTER - | | | | | | LABORATORY | | + + + + + + | Ketones, | Negative | Negative | [facility] | | | Urine | | | [facility] | | | | | | [facility] | | | | | | CENTER - | | | | | | LABORATORY | | + + + + + + | Bilirubin, | Negative | Negative | [facility] | | | Urine | | | [facility] | | | | | | [facility] | | | | | | CENTER - | | | | | | LABORATORY | | + + + + + + | Nitrite, | Negative | Negative | [facility] | | | Urine | | | [facility] | | | | | | [facility] | | | | | | CENTER - | | | | | | LABORATORY | | + + + + + + | Leukocyte | Small (A) | Negative | [facility] | | | Esterase, | | | [facility] | | | Urine | | | MEDICAL | | | | | | CENTER - | | | | | | LABORATORY | | + + + + + + | Urobilinoge | 0.2 E.U./dL | 0.2 E.U./dL | [facility] | | | n, Urine | | | [facility] | | | | | | MEDICAL | | | | | | CENTER - | | | | | | LABORATORY | | + + + + + + | WBC UA | 5-10 (A) | 0 - 2 /HPF | [facility] | | | | | [facility] | | | | | | [facility] | | | | | | CENTER - | | | | | | LABORATORY | | + + + + + + | RBC UA | 15-25 (A) | 0 - 2 /HPF | [facility] | | | | | [facility] | | | | | | [facility] | | | | | | CENTER - | | | | | | LABORATORY | | + + + + + + | SQUAMOUS | 5-10 (A) | 0 - 2 /LPF | [facility] | | | EPITHELIAL | | | [facility] | | | UA | | | MEDICAL | | | | | | CENTER - | | | | | | LABORATORY | | + + + + + + | BACTERIA UA | 2+ (A) | Negative /HPF | [facility] | | | | | | [facility] | | | | | | [facility]ICAL | | | | | | CENTER - | | | | | | LABORATORY | | + + + + + + | URINE | Urine Culture Set Up | | [facility] | | | COMMENT | | | [facility] | | | | | | [facility] | | | | | | CENTER - | | | | | | LABORATORY | | + + + + + + + + | Specimen | + + | Urine | + + + + + + + | Performing | Address | City/State/Zipcode | Phone Number | | Organization | | | | + + + + + | [facility] | [address] | [place] | [phone] | | [facility] | | [address] | | | - LABORATORY | | | | + + + + + | [facility] | [address] | [place] | | | [facility] | | [address] | | | - LABORATORY | | | | + + + + + Comprehensive Metabolic Panel (01/24/2014 10:17 AM PDT) + + + + + + | Component | Value | Ref Range | Performed | Pathologist | | | | | At | Signature | + + + + + + | Na | 133 (L) | 136 - 149 | [facility] | | | | | mmol/L | [facility] | | | | | [facility] | | | | | | CENTER - | | | | | | LABORATORY | | + + + + + + | K | 4.1 | 3.5 - 5.1 | [facility] | | | | | mmol/L | [facility] | | | | | | MEDICAL | | | | | | CENTER - | | | | | | LABORATORY | | + + + + + + | Cl | 98 | 98 - 109 mmol/L | [facility] | | | | | | [facility] | | | | | | [facility] | | | | | | CENTER - | | | | | | LABORATORY | | + + + + + + | CO2 | 23 (L) | 24 - 31 mmol/L | [facility] | | | | | | [facility] | | | | | | [facility] | | | | | | CENTER - | | | | | | LABORATORY | | + + + + + + | Anion Gap | 12 | 3 - 16 mmol/L | [facility] | | | | | [facility] | | | | | | [facility] | | | | | | CENTER - | | | | | | LABORATORY | | + + + + + + | Glucose | 341 (H) | 70 - 109 mg/dL | [facility] | | | | | [facility] | | | | | | [facility] | | | | | | CENTER - | | | | | | LABORATORY | | + + + + + + | BUN | 6 (L) | 7 - 18 mg/dL | [facility] | | | | | | [facility] | | | | | | [facility] | | | | | | CENTER - | | | | | | LABORATORY | | + + + + + + | Creatinine | 0.59 (L) | 0.60 - 1.30 | [facility] | | | | | mg/dL | [facility] | | | | | | MEDICAL | | | | | | CENTER - | | | | | | LABORATORY | | + + + + + + | eGFR if not | >60Comment: GLOMERULAR | >=60 | [facility] | | | | FILTRATION | mL/min/1.73m2 | [facility] | | | [place] | RATE,ESTIMATED | | MEDICAL | | | | mL/min/1.69n7Fmyh than | | CENTER - | | | | 60 Chronic kidney | | LABORATORY | | | | disease,if found over a | | | | | | 3-month period.Less than | | | | | | 15 Kidney failureFor | | | | | | | | | | | | Americans,multiply the | | | | | | calculated GFR by 1.21. | | | | | | | | | | + + + + + + | Calcium | 9.0 | 8.3 - 10.5 | [facility] | | | | | mg/dL | [facility] | | | | | | [facility] | | | | | | CENTER - | | | | | | LABORATORY | | + + + + + + | Albumin | 3.5 | 3.2 - 5.0 g/dL | [facility] | | | | | | [facility] | | | | | | [facility] | | | | | | CENTER - | | | | | | LABORATORY | | + + + + + + | Bilirubin | 0.7 | 0.1 - 1.5 mg/dL | [facility] | | | Total | | | [facility] | | | | | | [facility]ICAL | | | | | | CENTER - | | | | | | LABORATORY | | + + + + + + | Total | 6.9 | 6.0 - 7.8 g/dL | [facility] | | | Protein | | | [facility] | | | | | | MEDICAL | | | | | | CENTER - | | | | | | LABORATORY | | + + + + + + | AST | 27 | 10 - 42 U/L | [facility] | | | | | | [facility] | | | | | | MEDICAL | | | | | | CENTER - | | | | | | LABORATORY | | + + + + + + | ALT | 27 | 6 - 45 U/L | [facility] | | | | | | [facility] | | | | | | [facility]ICAL | | | | | | CENTER - | | | | | | LABORATORY | | + + + + + + | Alkaline | 87 | 40 - 110 U/L | [facility] | | | Phosphatase | | | [facility] | | | | | | MEDICAL | | | | | | CENTER - | | | | | | LABORATORY | | + + + + + + | Globulin | 3.4 | g/dL | [facility] | | | | | | [facility] | | | | | | [facility] | | | | | | CENTER - | | | | | | LABORATORY | | + + + + + + | Albumin/Larissa | 1.0 | | [facility] | | | bulin Ratio | | | [facility] | | | | | | MEDICAL | | | | | | CENTER - | | | | | | LABORATORY | | + + + + + + | BUN/Creatin | 10.2 | | [facility] | | | ine Ratio | | | [facility] | | | [facility] | | [facility] | | | | | | CENTER - | | | | | | LABORATORY | | + + + + + + + + | Specimen | + + | Blood | + + + + + + + | Performing | Address | City/State/Zipcode | Phone Number | | Organization | | | | + + + + + | [facility] | [address] | [place] | [phone] | | [facility] | | [address] | | | - LABORATORY | | | | + + + + + | [facility] | [address] | [place] | | | [facility] | | [address] | | | - LABORATORY | | | | + + + + + CBC with Differential (01/24/2014 10:17 AM PDT) + +-------+ + + + | Component | Value | Ref Range | Performed | Pathologist | | | | | At | Signature | + +-------+ + + + | WBC | 8.4 | 4.0 - 11.0 K/uL | [facility] | | | | | | [facility] | | | | | [facility] | | | | | | C[facility] - | | | | | | LABORATORY | | + +-------+ + + + | RBC | 5.03 | 3.70 - 5.20 | [facility] | | | | | M/uL | [facility] | | | | | | MED[facility] | | | | | | CENTER - | | | | | | LABORATORY | | + +-------+ + + + | Hemoglobin | 14.2 | 11.5 - 16.0 | [facility] | | | | | g/dL | [facility] | | [facility] | | | [facility] | | | | | | C[facility] - | | | | | | LABORATORY | | + +-------+ + + + | Hematocrit | 42.4 | 34.0 - 47.0 % | [facility] | | | | | | [facility] | | | | | | [facility] | | | | | | C[facility] - | | | | | | LABORATORY | | + +-------+ + + + | MCV | 84.3 | 83.0 - 101.0 fL | [facility] | | | | | | [facility] | | | | | | [facility] | | | | | | C[facility] - | | | | | | LABORATORY | | + +-------+ + + + | MCH | 28.3 | 28.0 - 35.0 pg | [facility] | | | | | | [facility] | | | | | | [facility] | | | | | | CENTER - | | | | | | LABORATORY | | + +-------+ + + + | MCHC | 33.6 | 32.0 - 36.0 | [facility] | | | | | g/dL | [facility] | | | | | | [facility] | | | | | | CENTER - | | | | | | LABORATORY | | + +-------+ + + + | RDW-CV | 13.3 | <15.0 % | [facility] | | [facility] | | [facility] - | | | | | | LABORATORY | | + +-------+ + + + | Platelet | 332 | 140 - 440 K/uL | [facility] | | | Count | | | [facility] | | [facility] | [facility] | [facility] | [facility] | [facility] - | | | | | | LABORATORY | | + +-------+ + + + | MPV | 7.8 | fL | [facility] | [facility] | [facility] | | | [facility] | | [facility] - | | | | | | LABORATORY | | + +-------+ + + + | % | 58.3 | 45.0 - 82.0 % | [facility] | | | Neutrophils | | | [facility] | [facility] | [facility] | | | | | | CENTER - | | | | | | LABORATORY | | + +-------+ + + + | % | 30.3 | 20.0 - 45.0 % | [facility] | | | Lymphocytes | | | [facility] | [facility] | [facility] | | | | | | C[facility] - | | | | | | LABORATORY | | + +-------+ + + + | % Monocytes | 6.1 | 4.0 - 12.0 % | [facility] | | | [facility] | [facility] | | | | | | [facility] - | | | | | | LABORATORY | | + +-------+ + + + | % | 4.7 | 0.0 - 5.0 % | [facility] | | | Eosinophils | | | [facility] | | | | | | [facility] | | | | | | CENTER - | | | | | | LABORATORY | | + +-------+ + + + | % Basophils | 0.6 | 0.0 - 1.0 % | [facility] | | | [facility] | [facility] | | | | | | [facility] - | | | | | | LABORATORY | | + +-------+ + + + | Absolute | 4.90 | 1.80 - 8.50 | [facility] | | | Neutrophils | | K/uL | [facility] | | [facility] | | | | | | [facility] - | | | | | | LABORATORY | | + +-------+ + + + | Absolute | 2.50 | 0.60 - 3.20 | [facility] | | | Lymphocytes | | K/uL | [facility] | [facility] | | | | | | [facility] - | | | | | | LABORATORY | | + +-------+ + + + | Absolute | 0.50 | 0.00 - 1.00 | [facility] | | | Monocytes | | K/uL | [facility] | | | | | | [facility] | | | | | | CENTER - | | | | | | LABORATORY | | + +-------+ + + + | Absolute | 0.40 | 0.00 - 0.40 | [facility] | | | Eosinophils | | K/uL | [facility] | | | | | | [facility] | | | | | | CENTER - | | | | | | LABORATORY | | + +-------+ + + + | Absolute | 0.10 | 0.00 - 0.10 | [facility] | | | Basophils | | K/uL | [facility] | | | | | | [facility] | | | | | | CENTER - | | | | | | LABORATORY | | + +-------+ + + + + + | Specimen | + + | Blood | + + + + + + + | Performing | Address | City/State/Zipcode | Phone Number | | Organization | | | | + + + + + | [facility] | [address] | [place] | [phone] | | [facility] | | [address] | | | - LABORATORY | | | | + + + + + | [facility] | [address] | [place] | | | [facility] | | [address] | | | - LABORATORY | | | | + + + + + documented in this encounter Visit Diagnoses + + | Diagnosis | + + | Carpal tunnel syndrome, right Carpal tunnel syndrome | + + documented in this encounter Administered Medications + +---------+ +--------+ +------+ | Medication Order | MAR | Action | Dose | Rate | Site | | | Action | Date | | | | + +---------+ +--------+ +------+ | lactated ringers (LR) infusion | New Bag | 01/27/20 | 1,000 | 50 mL/hr | | | at 10-100 mL/hr, Intravenous, | | 14 10:02 | mLs | | | | CONTINUOUS, Starting 01/26/14 | | AM PDT | | | | | at 0945, TKO., Pre-op | | | | | | + +---------+ +--------+ +------+ +---+---+ | | | +---+---+ + +-------+ +-------+---+ + | ropivacaine (NAROPIN) 5 mg/mL | Given | 08/13/20 | 5 mLs | | Surgical | | (0.5%) injection PRN, Starting | | 14 10:56 | | | Site | | Fri01/26/14 at 1056, Intra-op | | AM PDT | | | | + +-------+ +-------+---+ + +---+---+ | | | +---+---+ + +---------+ +--------+---+ + | scopolamine (TRANSDERM-SCOP) | Patch | 01/27/20 | 1.5 mg | | Ear-Behi | | patch 1.5 mg 1.5 mg (1 patch), | Applied | 14 10:00 | | | nd Left | | Transdermal, EVERY 72 HOURS, | | AM PDT | | | | | First dose on Fri01/26/14 at | | | | | | | 0945, DO NOT CUT patch. (If | | | | | | | patch needed, use occlusive | | | | | | | dressing to expose only of | | | | | | | patch to skin.), Pre-op | | | | | | + +---------+ +--------+---+ + +---+---+ | | | +---+---+ documented in this encounter
--- OUTSIDE RECORDS SUMMARY | ~2019-04-25 | XMS | Encounter Summary ---
Demographics + + + | Address | [address] | | | [place] [address] | + + + | Home Phone | | + + + | Preferred Language | Unknown | + + + | Marital Status | Unknown | + + + | Synagogue Affiliation | Unknown | + + + | Race | Unknown | + + + | Ethnic Group | Unknown | + + + Author + + + | Author | [facility] | | | and [place] | + + + | Organization | [facility] | | | and [...] Team Providers + +------+ + | Care Market Garden Worker Name | Role | Phone | + [...] | | | | | | | [facility] | | | | | | | MEDIAN | | | | | | | N/CARPAL | | | | | | | TUNNEL SURG | | | | | | | RELEASE | | | | | | | CARPAL | | | | | | | TUNNEL | | | +--------+--------+ + + + + Encounter Details +--------+ + + + + | Date | Type | Department | Care Team | Description | +--------+ + + + + | 01/26/ | Anesthesia | [facility] | [facility] | | | 2013 | Event | [facility] | MD Nabor [address] | | | | | [address] | [address] [place] | | | | | [place] | [id number] | | | | | [address] | | | | | | [phone] | | | +--------+ + + + + Anesthesia Record + + + + + | Procedure Name | Responsible | Anesthesia Start | Anesthesia Stop Time | | | Anesthesiologist | Time | | + + + + + | RE[facility]AL | [facility], | 01/26/14 1028 | 01/26/14 1121 | | TUNNEL - RIGHT | MD | | | | (Right Wrist) | | | | + + + + + +----+---+ + + | Da | T | Event | Comment | | te | i | | | | | m | | | | | e | | | +----+---+ + + | 08 | 1 | | | | /1 | 0 | | | | 3/ | 2 | | | | 20 | 5 | | | | 14 | | | | +----+---+ + + | | 1 | An Checkout | Pre-use anesthesia machine/equipment checkout. | | | 0 | | | | | 2 | | | | | 5 | | | +----+---+ + + | | 1 | An Start | Reassessment prior to anesthesia induction/procedure. | | | 0 | | | | | 2 | | | | | 8 | | | +----+---+ + + | | 1 | An Start | | | | 0 | Data | | | | 2 | | | | | 9 | | | +----+---+ + + | | 1 | Antibiotic | | | | 0 | Given | | | | 2 | | | | | 9 | | | +----+---+ + + | | 1 | Preoxygenat | | | | 0 | ed | | | | 2 | | | | | 9 | | | +----+---+ + + | | 1 | An | | | | 0 | Induction | | | | 3 | | | | | 2 | | | +----+---+ + + | | 1 | An | | | | 0 | Intubation | | | | 3 | | | | | 9 | | | +----+---+ + + | | 1 | Breathing | | | | 1 | Spontaneous | | | | 0 | ly | | | | 5 | | | +----+---+ + + | | 1 | Moving | | | | 1 | Purposefull | | | | 0 | y | | | | 5 | | | +----+---+ + + | | 1 | Extubated | | | | 1 | Awake | | | | 0 | | | | | 5 | | | +----+---+ + + | | 1 | an stop | | | | 1 | data | | | | 1 | | | | | 4 | | | +----+---+ + + | | 1 | An Stop | Patient handed off to recovery nurse. | | | 2 | | | | | 1 | | | +----+---+ + + +------+ | Meds | +------+ + +---------+ | Name | Total | + +---------+ | midazolam | 2 mg | + +---------+ | fentaNYL | 100 mcg | + +---------+ | lidocaine 2% (PF) | 50 mg | + +---------+ | propofol | 500 mg | + +---------+ | dexamethasone | 5 mg | + +---------+ | ondansetron | 4 mg | + +---------+ | ceFAZolin in dextrose (ANCEF) | 2 g | | IVPB 2 g | | + +---------+ | lactated ringers (LR) infusion | 900 mL | + +---------+ + + | Name | + + | N2O Flow Rate (L/Min) | + + | O2 Flow Rate (L/Min) | + + | Insp O2 | + + | Exp SEV | + + | Air Flow Rate (L/Min) | + + + + | No blood administrations on file. | + + +--------+ + + + | Type | Details | Placement | Removal | +--------+ + + + | Airway | Mask Ventilation: EZ w/OA; Airway | 01/26/14 1053 by | 01/26/14 1105 by | | | Grade: III; Attempts: 1; Airway | | [facility], | | | Type: laryngeal mask; Size: 4; | | MD | | | Tube Reference Point: secure and | | | | | patent; Trauma: none; Placement | | | | | Check: verified by capnography; | | | | | Placed By: Anesthesiologist; | | | | | Removal: per protocol; Removal | | | | | Date: 01/26/14; Removal Time: | | | | | 1105 | | | +--------+ + + + | Read | 01/26/14; 1056; Right; wrist; | 01/26/14 1056 by | 09/08/18 1342 by | | only - | healing within expectations; | Laura Morales RN | User Epic | | | 09/08/18 (Completed/Removed by | | | | [employer] | Utility); 1342 (Completed/Removed | | | | on | by Utility) | | | +--------+ + + + documented in this encounter Social History + + + +--------+------+ | [...] as of this encounter Plan of Treatment Not on filedocumented as of this encounter Visit Diagnoses Not on filedocumented in this encounter Administered Medications + +--------+ +------+------+------+ | Medication Order | MAR | Action | Dose | Rate | Site | | | Action | Date | | | | + +--------+ +------+------+------+ | ceFAZolin in dextrose (ANCEF) | Given | 01/27/20 | 2 g | | | | IVPB 2 g 2 g, Intravenous, | | 14 10:29 | | | | | Administer over 30 Minutes, Prior | | AM PDT | | | | | to Incision, Starting Wed | | | | | | | 01/26/14 at 0917, For 1 dose, 30 | | | | | | | minutes prior to surgery., Pre-op | | | | | | + +--------+ +------+------+------+ +---+---+ | | | +---+---+ + +-------+ +------+---+---+ | dexamethasone (DECADRON) 10 | Given | 01/27/20 | 5 mg | | | | mg/mL injection Intravenous, | | 14 10:48 | | | | | PRN, Starting Fri01/26/14 at | | AM PDT | | | | | 1048, Anesthesia Intra-op | | | | | | + +-------+ +------+---+---+ +---+---+ | | | +---+---+ + +-------+ +--------+---+---+ | fentaNYL injection PRN, Pain, | Given | 01/27/20 | 50 mcg | | | | Starting Fri01/26/14 at 1029, | | 14 10:30 | | | | | Anesthesia Intra-op | | AM PDT | | | | + +-------+ +--------+---+---+ +-------+ +--------+---+---+ | Given | 01/27/20 | 50 mcg | | | | | 14 10:29 | | | | | | AM PDT | | | | +-------+ +--------+---+---+ +---+---+ | | | +---+---+ + +-------+ +-------+---+---+ | lidocaine (PF) 2% injection | Given | 01/27/20 | 50 mg | | | | PRN, Starting Fri01/26/14 at | | 14 10:29 | | | | | 1029, Anesthesia Intra-op | | AM PDT | | | | + +-------+ +-------+---+---+ +---+---+ | | | +---+---+ + +-------+ +------+---+---+ | midazolam (VERSED) 1 mg/mL | Given | 01/27/20 | 2 mg | | | | injection Intravenous, PRN, | | 14 10:29 | | | | | Anxiety, Starting Fri01/26/14 at | | AM PDT | | | | | 1029, Anesthesia Intra-op | | | | | | + +-------+ +------+---+---+ +---+---+ | | | +---+---+ + +-------+ +------+---+---+ | ondansetron (ZOFRAN) injection | Given | 01/27/20 | 4 mg | | | | PRN, Nausea, Vomiting, Starting | | 14 10:48 | | | | | Fri01/26/14 at 1048, Anesthesia | | AM PDT | | | | | Intra-op | | | | | | + +-------+ +------+---+---+ +---+---+ | | | +---+---+ + +-------+ +--------+---+---+ | propofol (DIPRIVAN) injection | Given | 01/27/20 | 100 mg | | | | PRN, Starting Fri01/26/14 at | | 14 10:33 | | | | | 1029, Anesthesia Intra-op | | AM PDT | | | | + +-------+ +--------+---+---+ +-------+ +--------+---+---+ | Given | 01/27/20 | 200 mg | | | | | 14 10:31 | | | | | | AM PDT | | | | +-------+ +--------+---+---+ | Given | 01/27/20 | 200 mg | | | | | 14 10:29 | | | | | | AM PDT | | | | +-------+ +--------+---+---+ +---+---+ | | | +---+---+ documented in this encounter"
--- OUTSIDE RECORDS SUMMARY | ~2019-04-25 | XMS | Encounter Summary ---
Demographics + + + | Address | [address] | | | [place] [address] | + + + | Home Phone | | + + + | Preferred Language | Unknown | + + + | Marital Status | Unknown | + + + | Episcopal Affiliation | Unknown | + + + | Race | Unknown | + + + | Ethnic Group | Unknown | + + + Author + + + | Author | [facility] | | | and [place] | + + + | Organization | [facility] | | | and [...] Team Providers + +------+ + | Care Tension Worker Name | Role | Phone | [...] | | | | | | | [facility] | | | | | | [...] RIGHT | | | | [address] | [place] | | | | | [place] | [address] | | | | | [address] | | | | | | [phone] | | | +--------+---------+ + + + [...] your wrist to reduce swelling for the [id number]. Leave the ice pack on [id number] nutes; then take it off [id number]. Repeat as needed. Keep your arm elevated above your heart [id number] after surgery. Do the exercises you learned [...] incision (cut) Opening of the incision Fever [id number](38.9C) taken by mouth, or shaking chills Any new numbness in the fingers or thumb Blue hand or fingers Increased pain with or without activity Increased redness, tenderness, or swelling of the incision [id number] [facility], [address] [place] [address], [place] [address]. All rights reserve d. This information is [...] may interact with prescription medicines or other hxzw-uoc-zpmmqre (OTC) drugs. The FDA recommends reading OTC medication labels careful ly to clearly understand the list of active ingredients, directions, and any precautions to help avoid taking too muchacetaminophen. If you have questions, ask your pharmacist or a [facility] care provider. Managing Nausea Some people have [...] or skin changes (rash, itching, or hives). 3892-6053 [facility], [address] [place] [address], [place] [address]. All rights reserve d. This information is [...] + | [facility] | [address] | [place] | [phone] | | [facility] | | [address] | | | - LABORATORY | | | | + + + + + | [facility] | [address] | [place] | | | [facility] | | [address] | | | - LABORATORY | | [...] - 1.030 | [facility] | | | [place] | | | [facility] | | [...] + | [facility] | [address] | [place] | [phone] | | [facility] | | [address] | | | - LABORATORY | | | | + + + + + | [facility] | [address] | [place] | | | [facility] | | [address] | | | - LABORATORY | | [...] | mL/min/1.73m2 | [facility] | | | MALAWIAN | RATE,ESTIMATED | | MEDICAL | | | | mL/min/1.83g2Gwma than | | CENTER - | | [...] | | Total | | | [facility] | | | | | | MEDICAL [...] [address] | [place] | [phone] | | [facility] | | [address] | | | - LABORATORY | | | | + + + + + | [facility] | [address] | [place] | | | [facility] | | [address] | | | - LABORATORY | | [...] | + + + + + | [facility] | [address] | [place] | [phone] | | [facility] | | [address] | | | - LABORATORY | | | | + + + + + | [facility] | [address] | [place] | | | [facility] | | [address] | | | - LABORATORY | | [...]
--- OUTSIDE RECORDS SUMMARY | ~2019-04-25 | XMS | Encounter Summary ---
Demographics + + + | Address | [address] | | | [place] [address] | + + + | Home Phone | | + + + | Preferred Language | Unknown | + + + | Marital Status | Unknown | + + + | Cheondoism Affiliation | Unknown | + + + | Race | Unknown | + + + | Ethnic Group | Unknown | + + + Author + + + | Author | [facility] | | | and [place] | + + + | Organization | [facility] | | | [...] Team Providers + +------+ + | Care Smoking Pipe Coater Name | Role | Phone | + +------+ + | Prince Penny PA-C | PCP | | + +------+ + Reason for Visit + + + | Reason | Comments | + + + | New Patient | | + + + | Wrist Pain | right wrist pain EMG performed 11/22/[address] Cary | + + + Evaluate & Treat (Routine) +--------+--------+ + + + + | Status | Reason | Specialty | Diagnoses / | Referred By | Referred To | | | | | Procedures | Contact | Contact | +--------+--------+ + + + + | Closed | | Orthopedic | Diagnoses | [place], | [address] | | | | Surgery | Carpal | Prince Brown, | Orthopedic | | | | | tunnel | [place] [address] | Surgery [address] | | | | | syndrome | [address] | [address] | | | | | | [address] | [place], | | | | | | [place] | | | | | | [place] [address] | [address] | | | | | | Phone: | Phone: | | | | | | [phone] | [phone] | | | | | | Fax: | Fax: | | | | | | [phone] | [phone] | +--------+--------+ + + + + Encounter Details +--------+---------+ + + + | Date | Type | Department | Care Team | Description | +--------+---------+ + + + | 11/23/ | Office | [facility] | Que Santos | Right wrist pain | | 2013 | Visit | ORTHOPEDIC SURGERY | MD Kevin [address] [facility] | (Primary Dx); Carpal | | | | [address] [facility] | [place] | tunnel syndrome of | | | | [place], [place] | [address] | right wrist | | | | [address] | | | | | | [phone] | | | +--------+---------+ + + + Social History + + + +--------+------+ | Tobacco Use | Types | Packs/Day | Years | Date | | | | | Used | | + + + +--------+------+ | Current Some Day | Cigarettes | | | | | Smoker | | | | | + + + +--------+------+ + + +---------+ + | Alcohol Use | Drinks/Week | oz/Week | Comments | + + +---------+ + | Not Asked | | | | + + +---------+ + + + [...] + + + | Blood Pressure | - | - | | + + + + + | Pulse | - | - | | + + + + + | Temperature | 36.7 C (98.1 F) | 11/23/2013 2:30 PM | | | | | PDT | | + + + + + | Respiratory Rate | - | - | | + + + + + | Oxygen Saturation | - | - | | + + + + + | Inhaled Oxygen | - | - | | | Concentration | | | | + + + + + | Weight | 109.8 kg (242 lb) | 11/23/2013 2:30 PM | | | | | PDT | | + + + + + | Height | 162.6 cm (5' 4") | 11/23/2013 2:30 PM | | | | | PDT | | + + + + + | Body Mass Index | 41.54 | 11/23/2013 2:30 PM | | | | | PDT | | + + + + + documented in this encounter Progress Notes Que Santos MD - 11/23/2013 7:28 PM PDTShimon krishnan note [id number].Electronically nima d by Que Santos MD at 11/23/2013 7:28 PM Que Sparrow MD - 11/23/2013 12:00 AM PDT ORTHOPEDICS [address] [place] [address] FAX: [phone] OFFICE VISIT IDENTIFICATION: Meghan Ledesma is a 47-year-old female who lives in [place], [place]. CHIEF COMPLAINT: Right hand numbness, pain, and tingling. HISTORY: Meghan Ledesma has a many-month history of right hand numbness, tingling and pain. This primarily involves her thumb, index, long and tip of the ring finger. She notes that i t is gradually worsening. She has had occasional nighttime symptoms that awaken her from sl eep and also symptoms in the daytime associated with repetitive use of her right hand. She denies neck pain. She does have history of diabetes and hypothyroidism. She has undergone a n electrodiagnostic evaluation performed 11/22/2013 which shows evidence of severe right ca rpal tunnel syndrome. PAST MEDICAL HISTORY: Includes diabetes mellitus, dyslipidemia, anemia, hypertension, hypo thyroidism, angioneurotic edema, urticaria, adjustment disorder with anxiety, insomnia, an d obesity. She also has osteoarthritis and depression. PAST SURGICAL HISTORY: Includes a D and C, and colonoscopy. MEDICATION ALLERGIES 1. PENICILLIN. 2. TYPE A INHIBITORS CAUSE ANAPHYLAXIS. CURRENT MEDICATIONS: As follows 1. Tylenol with codeine p.r.n. pain. 2. Albuterol inhaler 2 puffs q.i.d. p.r.n. 3. Aspirin 81 mg p.o. daily. 4. Atorvastatin 20 mg p.o. at bedtime. 5. Calcium and vitamin D daily. 6. Citalopram 40 mg p.o. daily. 7. Diltiazem XR 540 mg p.o. daily. 8. Benadryl p.r.n. 9. Vitamin D2 50,000 units p.o. week. 10. Iron sulfate 325 mg p.o. daily. 11. Insulin daily as directed. 12. Hydrochlorothiazide 25 mg p.o. q.a.m. 13. Levothyroxine 88 mcg p.o. daily. 14. Lorazepam p.r.n. anxiety. 15. Metformin 2000 mg p.o. q evening. 16. Metoprolol 25 mg p.o. daily. 17. Potassium chloride 10 mEq p.o. daily. 18. Ranitidine 150 mg p.o. daily. 19. Tolterodine tartrate 4 mg p.o. daily. FAMILY HISTORY: Positive for cancer, diabetes, early , hearing loss, heart disease, hi gh blood pressure, hypercholesterolemia, kidney disease, miscarriage, stroke and substance abuse. SOCIAL HISTORY: The patient uses occasional tobacco products. She drinks rare alcoholic be verages. REVIEW OF SYSTEMS Positive for glasses, high blood pressure, depression, numbness, arthritis. PHYSICAL EXAMINATION The patient's right hand is examined. There is a suggestion of thenar eminence atrophy. She has a very positive Tinel sign to percussion over the median nerve at the level of her rig ht wrist. She has a mildly positive Phalen test at 10 seconds. ASSESSMENT 1. SEVERE RIGHT CARPAL TUNNEL SYNDROME. 2. MULTIPLE MEDICAL COMORBIDITIES, INCLUDING DIABETES MELLITUS, DYSLIPIDEMIA, ANEMIA, HYPE RTENSION, HYPOTHYROIDISM, ANGIONEUROTIC EDEMA, URTICARIA, ANXIETY AND DEPRESSION, AND OBESI TY. ADVICE: Meghan is a candidate for carpal tunnel release surgery, and therefore will be stefano eduled for the procedure following financial clearance at a time that is convenient for her schedule. Que Santos MD RH / RS JOB #: [id number] signed by Que Santos MD at 12/28/2013 9:10 PM PDTdo cumented in this encounter Plan of Treatment Not on filedocumented as of this encounter Results XR Wrist Right 3 + Vw (11/23/2013 2:19 PM PDT) + + | Specimen | + + | | + + + + + | Narrative | Performed At | + + + | XR WRIST RIGHT 3 + VW. 11/23/2013 2:19 PM HISTORY: wrist pain . | MISCELANIOUS | | COMPARISON: None available. FINDINGS: The alignment is | LAB | | maintained, without fracture or dislocation. There is joint space | | | narrowing at the radiocarpal articulation. Contouring of the | | | proximal surface of the scaphoid is suggestive of impingement. | | | Overlying soft tissues are unremarkable. IMPRESSION - Joint | | | space narrowing at the radiocarpal articulation, with possible | | | impingement at the scaphoid. No evidence of acute fracture or | | | dislocation. Dictated and Signed by: Naresh Barboza MD | | | Electronically signed: 11/23/2013 5:37 PM | | + + + + + | Procedure Note | + + | Tavares, Rad Results In - 11/23/2013 5:40 PM PDT XR WRIST RIGHT 3 + VW. 11/23/2013 2:19 | | PMHISTORY: wrist pain . COMPARISON: None available.FINDINGS:The alignment is | | maintained, without fracture or dislocation. There is jointspace narrowing at the | | radiocarpal articulation. Contouring of the proximalsurface of the scaphoid is | | suggestive of impingement.Overlying soft tissues are unremarkable.IMPRESSION -Joint | | space narrowing at the radiocarpal articulation, with possible impingementat the | | scaphoid. No evidence of acute fracture or dislocation.Dictated and Signed by: Naresh | | MD Jabari Electronically signed: 11/23/2013 5:37 PM | |space narrowing at the radiocarpal articulation. Contouring of the proximal | |surface of the scaphoid is suggestive of impingement. | |Overlying soft tissues are unremarkable. | | | | | |IMPRESSION - | |Joint space narrowing at the radiocarpal articulation, with possible impingement | |at the scaphoid. No evidence of acute fracture or dislocation. | | | |Dictated and Signed by: Naresh Barboza MD | | Electronically signed: 11/23/2013 5:37 PM | + + + +---------+ + + | Performing | Address | City[facility] | Phone Number | | Organization | | | | + +---------+ + + | M[facility]OUS LAB | | | [phone] | + +---------+ + + | MISCELANIOUS LAB | | | [phone] | + +---------+ + + documented in this encounter Visit Diagnoses + + | Diagnosis | + + | Right wrist pain - Primary Pain in joint, forearm | + + | Carpal tunnel syndrome of right wrist Carpal tunnel syndrome | + + documented in this encounter
--- OUTSIDE RECORDS SUMMARY | ~2019-04-25 | XMS | Encounter Summary ---
Demographics + + + | Address | [address] | | | [place] [address] | + + + | Home Phone | | + + + | Preferred Language | Unknown | + + + | Marital Status | Unknown | + + + | Evangelical Affiliation | Unknown | + + + | Race | Unknown | + + + | Ethnic Group | Unknown | + + + Author + + + | Author | [facility] | | | and [place] | + + + | Organization | [facility] | | | [...] Team Providers + +------+ + | Care Adult Health Clinical Nurse Specialist Name | Role | Phone | + +------+ + | Prince Penny PA-C | PCP | | + +------+ + Encounter Details +--------+ + + + + | Date | Type | Department | Care Team | Description | +--------+ + + + + | 01/24/ | Hospital | [facility] | Que Santos | Carpal tunnel | | 2013 | Encounter | MED CTR LABORATORY | MD Kevin [address] [place] [address] | syndrome of right | | | | [address] | [place] | wrist | | | | [place] | [address] | | | | | [address] | | | | | | [phone] | | | +--------+ + + + + Social History + + [...] Comments | + + +---------+ + | No | | | | + + +---------+ [...] + + documented as of this encounter Medications at Time of Discharge + + + +---------+ + + | Medication | Sig | Dispensed | Refills | Start | End Date | | | | | | Date | | + + + +---------+ + + | atorvaSTATin | Take 20 mg by mouth | | 0 | /09/02 | | | (LIPITOR) 20 mg | nightly. | | | 14 | | | tablet | | | | | | + + + +---------+ + + | BYDUREON 2 MG SUSR | Inject 2 mg as | | 0 | / | | | | directed every 7 [...] by mouth 2 | | 0 | 08/29/19 | | | | times daily. | | | 14 | | + + + +---------+ + + | metoprolol | Take 25 mg by mouth | | 0 | 08/19/19 | | | tartrate (LOPRESSOR) | Daily. [...] tablet | | | | 14 | 4 [...] +---------+ + + | Insulin Glargine | | | 0 | 01/11/20 | | | (LANTUS SOLOSTAR SC) | | | | 14 | 4 [...] + | OMEGA 3 1000 MG | Take 1,000 mg by | | 0 | 01/17/20 | | | CAPS | mouth Once a week. | | | 14 | 4 | + + + +---------+ + + | ranitidine | | | 0 | 01/11/20 | | | (ZANTAC) 150 MG | | | | 14 | 4 | | capsule | | | | | | + + + +---------+ + + | ranitidine | | | 0 | 01/11/20 | | | (ZANTAC) 150 mg | | | | 14 | 4 | | tablet | | | | | | + + + +---------+ + + documented as of this encounter Plan of Treatment Not on filedocumented as of this encounter Procedures + +--------+ + + + | Procedure Name | Priori | Date/Time | Associated Diagnosis | Comments | | | ty | | | | + +--------+ + + + | URINALYSIS WITH | Routin | 01/24/2014 | Carpal tunnel | Results for this | | MICROSCOPIC WITH | e | 10:37 AM | syndrome of right | procedure are in the | | CULTURE IF INDICATED | | PDT | wrist | results section. | + +--------+ + + + | CULTURE, URINE | Routin | 01/24/2014 | Carpal tunnel | Results for this | | | e | 10:37 AM | syndrome of right | procedure are in the | | | | PDT | wrist | results section. | + +--------+ + + + | CBC WITH | Routin | 01/24/2014 | Carpal tunnel | Results for this | | DIFFERENTIAL | e | 10:17 AM | syndrome of right | procedure are in the | | | | PDT | wrist | results section. | + +--------+ + + + | COMPREHENSIVE | Routin | 01/24/2014 | Carpal tunnel | Results for this | | METABOLIC PANEL | e | 10:17 AM | syndrome of right | procedure are in the | | | | PDT | wrist | results section. | + +--------+ + + + documented in this encounter Results Culture, Urine (01/24/2014 10:37 AM PDT) + + + + + + | Component | Value | Ref Range | Performed | Pathologist | | | | | At | Signature | + + + + + + | Culture | 20,000 CFU/ml Mixed | | [facility] | | | | johny (multiple | | [facility] | | | | morphologies | | MEDICAL | | | | present)Comment: | | CENTER - | | | | Suggests contamination | | LABORATORY | | | | with urogenital or skin | | | | | | johny. | | | | + + + + + + + + | Specimen | + + | Urine | + + + + + + + | Performing | Address | City/State/Zipcode | Phone Number | | Organization | | | | + + + + + | [facility] | [address] | [place] | [phone] | | [facility] | | [address] | | | - LABORATORY | | | | + + + + + | [facility] | [address] | [place] | | | [facility] | | [address] | | | - LABORATORY | | [...] Color | Yellow | Light Yellow, | [facility] | | | | | Yellow | [facility] | | | | [...] - 1.030 | [facility] | | | [place] | | | [facility] | | [...] + | [facility] | [address] | [place] | [phone] | | [facility] | | [address] | | | - LABORATORY | | | | + + + + + | [facility] | [address] | [place] | | | [facility] | | [address] | | | - LABORATORY | | [...] | | | | mmol/L | [facility] | | | | | | MEDICAL | | | | | | CENTER - | | | | | | LABORATORY | | + + + + + + | K | 4.1 | 3.5 - 5.1 | [facility] | | | | | mmol/L | [facility] | | | | [...] (L) | 7 - 18 mg/dL | [facility] | | | | | | [facility] | | | | | | MEDICAL | | | | | | CENTER - | | | | | | LABORATORY | | + + + + + + | Creatinine | 0.59 (L) | 0.60 - 1.30 | [facility] | | | | | mg/dL | [facility] | | | | | | MEDICAL | | | | | | CENTER - | | | | | | LABORATORY | | + + + + + + | eGFR if not | >60Comment: GLOMERULAR | >=60 | [facility] | | | | FILTRATION | mL/min/1.73m2 | [facility] | | | [place] | RATE,ESTIMATED | | MEDICAL | | | | mL/min/1.52u2Inaj than | | CENTER - | | [...] | 9.0 | 8.3 - 10.5 | [facility] | | | | | mg/dL | [facility] | | | | | | MEDICAL | | | | | | CENTER - | | | | | | LABORATORY | | + + + + + + | Albumin | 3.5 | 3.2 - 5.0 g/dL | [facility] | | | | [...] | | bulin Ratio | | | [facility] | | | | | | MEDICAL | | | | | | CENTER - | | | | | | LABORATORY | | + + + + + + | BUN/Creatin | 10.2 | | [facility] | | | ine Ratio | | | [facility] | | [...] + | [facility] | [address] | [place] | [phone] | | [facility] | | [address] | | | - LABORATORY | | | | + + + + + | [facility] | [address] | [place] | | | [facility] | | [address] | | | - LABORATORY | | | | + + + + + CBC with Differential (01/24/2014 10:17 AM PDT) + +-------+ + + + | Component | Value | Ref Range | Performed | Pathologist | | | | | At | Signature | + +-------+ + + + | WBC | 8.4 | 4.0 - 11.0 K/uL | [facility] | | | | | [facility] | | | | | | MEDICAL | | | | | | CENTER - | | | | | | LABORATORY | | + +-------+ + + + | RBC | 5.03 | 3.70 - 5.20 | [facility] | | | | | M/uL | [facility] | | | | | | [...] | Neutrophils | | K/uL | [facility] | | | | | | MEDICAL | | | | | | CENTER - | | | | | | LABORATORY | | + +-------+ + + + | Absolute | 2.50 | 0.60 - 3.20 | [facility] | | | Lymphocytes | | K/uL | [facility] | | | | | | MEDICAL | | | | | | CENTER - | | | | | | LABORATORY | | + +-------+ + + + | Absolute | 0.50 | 0.00 - 1.00 | [facility] | | | Monocytes | | K/uL | [facility] | | | | [...] [address] | [place] | [phone] | | [facility] | | [address] | | | - LABORATORY | | | | + + + + + | [facility] | [address] | [place] | | | [facility] | | [address] | | | - LABORATORY | | | | + + + + + documented in this encounter Visit Diagnoses + + | Diagnosis | + + | Carpal tunnel syndrome of right wrist Carpal tunnel syndrome | + + documented in this encounter"
--- OUTSIDE RECORDS SUMMARY | ~2019-04-25 | XMS | Encounter Summary ---
Demographics + + + | Address | [address] | | | [place] [address] | + + + | Home Phone | | + + + | Preferred Language | Unknown | + + + | Marital Status | Unknown | + + + | Sabianist Affiliation | Unknown | + + + | Race | Unknown | + + + | Ethnic Group | Unknown | + + + Author + + + | Author | [facility] | | | and [place] | + + + | Organization | [facility] | | | [...] Team Providers + +------+ + | Care Academic Support Center Director Name | Role | Phone | + +------+ + | Prince Penny PA-C | PCP | | + +------+ + Encounter Details +--------+ + + + + | Date | Type | Department | Care Team | Description | +--------+ + + + + | 01/24/ | Hospital | [facility] | Que Santos | Carpal tunnel | | 2013 | Encounter | MED CTR LABORATORY | MD Kevin [address] [place] [address] | syndrome of right | | | | [address] | [place] | wrist | | | | [place] | [address] | | | | | [address] | | | | | | [phone] | | | +--------+ + + + [...] + | [facility] | [address] | [place] | [phone] | | [facility] | | [address] | | | - LABORATORY | | | | + + + + + | [facility] | [address] | [place] | | | [facility] | | [address] | | | - LABORATORY | | [...] - 1.030 | [facility] | | | [place] | | | [facility] | | [...] + | [facility] | [address] | [place] | [phone] | | [facility] | | [address] | | | - LABORATORY | | | | + + + + + | [facility] | [address] | [place] | | | [facility] | | [address] | | | - LABORATORY | | [...] 0.59 (L) | 0.60 - 1.30 | [facility] | | | | | mg/dL | [facility] | | | | | | MEDICAL | | | | | | CENTER - | | | | | | LABORATORY | | + + + + + + | eGFR if not | >60Comment: GLOMERULAR | >=60 | [facility] | | | | FILTRATION | mL/min/1.73m2 | [facility] | | | [place] | RATE,ESTIMATED | | MEDICAL | | | | mL/min/1.13g7Rukc than | | CENTER - | | [...] + | [facility] | [address] | [place] | [phone] | | [facility] | | [address] | | | - LABORATORY | | | | + + + + + | [facility] | [address] | [place] | | | [facility] | | [address] | | | - LABORATORY | | [...] [address] | [place] | [phone] | | [facility] | | [address] | | | - LABORATORY | | | | + + + + + | [facility] | [address] | [place] | | | [facility] | | [address] | | | - LABORATORY | | | | + + + + + documented in this encounter Visit Diagnoses + + | Diagnosis | + + | Carpal tunnel syndrome of right wrist Carpal tunnel syndrome | + + documented in this encounter"
--- OUTSIDE RECORDS SUMMARY | ~2019-04-25 | XMS | Encounter Summary ---
Demographics + + + | Address | [address] | | | [place] [address] | + + + | Home Phone | | + + + | Preferred Language | Unknown | + + + | Marital Status | Unknown | + + + | Episcopal Affiliation | Unknown | + + + | Race | Unknown | + + + | Ethnic Group | Unknown | + + + Author + + + | Author | [facility] | | | and [place] | + + + | Organization | [facility] | | | [...] Team Providers + +------+ + | Care Buyer Grain Name | Role | Phone | + +------+ + PCP | Unavailable | + +------+ + Encounter Details +--------+ + + + + | Date | Type | Department | Care Team | Description | +--------+ + + + + | 02/24/ | Hospital | [facility] | | | | 1991 | Encounter | MED CTR XRAY [address] | | | | | | [place] | | | | | | [place] [address] | | | | | | [phone] | | | +--------+ + + + [...] Visit Diagnoses Not on filedocumented in this encounter"
--- OUTSIDE RECORDS SUMMARY | ~2019-04-25 | XMS | Encounter Summary ---
Demographics + + + | Address | [address] | | | [place] [address] | + + + | Home Phone | | + + + | Preferred Language | Unknown | + + + | Marital Status | Unknown | + + + | Pentecostalism Affiliation | Unknown | + + + | Race | Unknown | + + + | Ethnic Group | Unknown | + + + Author + + + | Author | [facility] | | | and [place] | + + + | Organization | [facility] | | | [...] Team Providers + +------+ + | Care Reducing System Operator Name | Role | Phone | + +------+ + PCP | Unavailable | + +------+ + Encounter Details +--------+ + + + + | Date | Type | Department | Care Team | Description | +--------+ + + + + | 03/31/ | Hospital | [facility] | Gaston Trevino MD | | | 2006 - | Encounter | MED CTR MED ONC | [address] [place] | | | | | [address] | [address] [place], | | | 04/02/ | | [place] [address] | [place] [address] | | | 2006 | | [phone] | [phone] | | | | | | | | +--------+ + + [...]
--- OUTSIDE RECORDS SUMMARY | ~2019-04-25 | XMS | Encounter Summary ---
Demographics + + + | Address | [address] | | | [place] [address] | + + + | Home Phone | | + + + | Preferred Language | Unknown | + + + | Marital Status | Unknown | + + + | Restorationism Affiliation | Unknown | + + + [...] Team Providers + +------+ + | Care Assistant Credit Manager Name | Role | Phone | + +------+ + PCP | Unavailable | + +------+ + Encounter Details +--------+ + + + + | Date | Type | Department | Care Team | Description | +--------+ + + + + | 02/24/ | Hospital | [facility] | | | | 1991 | Encounter | MED CTR XRAY [address] | | | | | | [address] | | | | | | [place] [address] | | | | | | [phone] | | | +--------+ + + + [...]
--- OUTSIDE RECORDS SUMMARY | ~2019-04-25 | XMS | Encounter Summary ---
Demographics + + + | Address | [address] | | | [place] [address] | + + + | Home Phone | | + + + | Preferred Language | Unknown | + + + | Marital Status | Unknown | + + + | Sikhism Affiliation | Unknown | + + + | Race | Unknown | + + + | Ethnic Group | Unknown | + + + Author + + + | Author | [facility] | | | and [place] | + + + | Organization | [facility] | | | [...] Team Providers + +------+ + | Care Personnel Records Clerk Name | Role | Phone | + +------+ + | Prince Penny PA-C | PCP | | + +------+ + Reason for Visit +--------+ + | Reason | Comments | +--------+ + | Other | | +--------+ + Encounter Details +--------+ + + + + | Date | Type | Department | Care Team | Description | +--------+ + + + + | 02/02/ | Telephone | [facility] | Que Santos | Other | | 2013 | | ORTHOPEDIC SURGERY | MD Kevin [address] [facility] | | | | | [address] [facility] | [place] | | | | | [place] | [address] | | | | | [address] | | | | | | [phone] | | | +--------+ + + + [...]
--- OUTSIDE RECORDS SUMMARY | ~2019-04-25 | XMS | Encounter Summary ---
Demographics + + + | Address | [address] | | | [place] [address] | + + + | Home Phone | | + + + | Preferred Language | Unknown | + + + | Marital Status | Unknown | + + + | Christianity Affiliation | Unknown | + + + | Race | Unknown | + + + | Ethnic Group | Unknown | + + + Author + + + | Author | [facility] | | | and [place] | + + + | Organization | [facility] | | | [...] Team Providers + +------+ + | Care Military Professional Name | Role | Phone | + [...] | | | | | | | [place] | | | | | | [...] + + + + | 01/26/ | Hospital | [facility] | Que Santos | Carpal tunnel | | 2013 | Encounter | MED CTR OR INTRA OP | MD Kevin [address] [facility] | syndrome of right | | | | [address] | [place] | wrist (Primary Dx) | | | | [place] | [address] | | | | | [address] | | | | | | [phone] | | | +--------+ + + + [...] your wrist to reduce swelling for the [id number]. Leave the ice pack on [id number] nutes; then take it off [id number]. Repeat as needed. Keep your arm elevated above your heart [id number] after surgery. Do the exercises you learned [...] incision (cut) Opening of the incision Fever .4F(38.9C) taken by mouth, or shaking chills Any new numbness in the fingers or thumb Blue hand or fingers Increased pain with or without activity Increased redness, tenderness, or swelling of the incision [id number] [facility], [address] [place] [address], [place] [address]. All rights reserve d. This information is [...] may interact with prescription medicines or other nltb-tko-jtfihfc (OTC) drugs. The FDA recommends reading OTC medication labels careful ly to clearly understand the list of active ingredients, directions, and any precautions to help avoid taking too muchacetaminophen. If you have questions, ask your pharmacist or [facility] care provider. Managing Nausea Some people [...] or skin changes (rash, itching, or hives). [id number] [facility], [address] [place] [address], [place] [address]. All rights reserve d. This information is [...] mEq by mouth | | 0 | /09/02 | | | CR tablet | Daily. | | | 14 | | + + + +---------+ + + | LANTUS 100 UNIT/ML | | | 0 | / | | | injection | | | | 14 | | + + + +---------+ + + | LOVAZA 1 G capsule | Take by mouth 2 | | 0 | //20 | | | | times daily. | [...] | 0 | 10/15/19 | | | ([facility]) | under the skin | | [...] | | POC | | | [facility] | | [...] + | [facility] | [address] | [place] | [phone] | | [facility] | | [address] | | | - LABORATORY | | | | + + + + + | [facility] | [address] | [place] | | | [facility] | | [address] | | | - LABORATORY | | [...] - 1.030 | [facility] | | | [place] | | | [facility] | | | | | | MEDICAL | | | | | | CENTER - | | | | | | LABORATORY | | + + + + + + | Protein, | Negative | Negative, | [facility] | | | Urine | | Trace, 30 mg/dL | [facility] | | | [...] | | COMMENT | | | [facility] | | [...] + | [facility] | [address] | [place] | [phone] | | [facility] | | [address] | | | - LABORATORY | | | | + + + + + | [facility] | [address] | [place] | | | [facility] | | [address] | | | - LABORATORY | | [...] not | >60Comment: GLOMERULAR | >=60 | [facility] | | | | FILTRATION | mL/min/1.73m2 | [facility] | | | [facility] | RATE,ESTIMATED | | MEDICAL | | | | mL/min/1.89w3Ohiw than | | CENTER - | | [...] | | ine Ratio | | | [facility] | [...] | + + + + + | [facility] | [address] | [place] | [phone] | | [facility] | | [address] | | | - LABORATORY | | | | + + + + + | [facility] | [address] | [place] | | | [facility] | | [address] | | | - LABORATORY | | | | + + + + + CBC with Differential (01/24/2014 10:17 AM PDT) + +-------+ + + + | Component | Value | Ref Range | Performed | Pathologist | | | | | At | Signature | + +-------+ + + + | WBC | 8.4 | 4.0 - 11.0 K/uL | [facility] | | | | | | [facility] | | | | | | MEDICAL | | | | | | CENTER - | | | | | | LABORATORY | | + +-------+ + + + | RBC | 5.03 | 3.70 - 5.20 | [facility] | | | | | M/uL | [facility] | | | | [...] | Eosinophils | | K/uL | [facility] | | | | | | MEDICAL | | | | | | CENTER - | | | | | | LABORATORY | | + +-------+ + + + | Absolute | 0.10 | 0.00 - 0.10 | [facility] | | | Basophils | | K/uL | [facility] | [...] | + + + + + | [facility] | [address] | [place] | [phone] | | [facility] | | [address] | | | - LABORATORY | | | | + + + + + | [facility] | [address] | [place], [place] | | | [facility] | | [address] | | | - LABORATORY | | | | + + + + + documented in this encounter Visit Diagnoses + + | Diagnosis | + + | Carpal tunnel syndrome of right wrist - Primary Carpal tunnel syndrome | + + documented [...] +------+ +---+---+ | | | +---+---+ + +---------+ [...]
--- OUTSIDE RECORDS SUMMARY | ~2019-04-25 | XMS | Encounter Summary ---
Demographics + + + | Address | [address] | | | [place] [address] | + + + | Home Phone | | + + + | Preferred Language | Unknown | + + + | Marital Status | Unknown | + + + | Baptist Affiliation | Unknown | + + + [...] Team Providers + +------+ + | Care Cooler Deliverer Name | Role | Phone | + +------+ + | Prince Penny PA-C | PCP | | + +------+ + Reason for Visit + + + | Reason | Comments | + + + | Numbness | right pain | + + + Service/Procedure (Routine) +--------+--------+ + + + + | Status | Reason | Specialty | Diagnoses / | Referred By | Referred To | | | | | Procedures | Contact | Contact | +--------+--------+ + + + + | Closed | | Physical | Diagnoses | | Zian[place], | | | | Medicine and | Disturbance | Luis Daniel, | Hang Albarado MD | | | | Rehabilitatio | of skin | Hang Albarado MD | [address] | | | | n | sensation | [address] | [place] | | | | | Procedures | [place] | [place], [place] | | | | | [place] | [place], [place] | [address] Phone: | | | | | &/SENS 1-2 | [address] | [phone] | | | | | NRV CNDJ | Phone: | Fax: | | | | | PRECONF | [phone] | [phone] | | | | | ELTRODE LIMB | Fax: | | | | | | NCS-right | [phone] | | | | | | wrist CTS | | | | | | | referred by | | | | | | | Prince | | | | | | | Hemalatha STEELE | | | +--------+--------+ + + + + Encounter Details +--------+ + + + + | Date | Type | Department | Care Team | Description | +--------+ + + + + | 11/22/ | Procedure | [facility] | Luis Daniel Hang | Carpal tunnel | | 2013 | visit | PHYSIATRY [address] | [address], [address] | syndrome of right | | | | [place], | [place] | wrist (Primary Dx) | | | | [place] [address] | [address] | | | | | [phone] | | | +--------+ + + + + Social History + +-------+ +--------+------+ | Tobacco Use | Types | Packs/Day | Years | Date | | | | | Used | | + +-------+ +--------+------+ | Current Some Day | | | | | | Smoker | | | | | + +-------+ +--------+------+ + + +---------+ + | Alcohol [...] + + + + | Temperature | - | - | | + [...] Weight | 109.8 kg (242 lb) | 11/22/2013 11:04 AM | | | | | PDT | | + + + + + | Height | 162.6 cm (5' 4") | 11/22/2013 11:04 AM | | | | | PDT | | + + + + + | Body Mass Index | 41.54 | 11/22/2013 11:04 AM | | | | | PDT | | + + + + + documented in this encounter Progress Notes Hang Cary MD - 11/22/2013 12:38 PM PDT [facility] Mus[facility], Sports [facility] Spine, Physiatry [address] [place] [address] Test Date: 11/22/2013 Patient Name: Meghan Ledesma : 1965 Physician: Hang Cary MD MR #: [id number] Sex: Female Referring Physician: Liam Penny PA-C HISTORY: Ms. Meghan Ledesma is a pleasant 47 year-old right-handed female who is being seen today at at the request of Liam Penny PA-C for complaints of right hand numbness, tingling and pain . The symptoms mostly involve the 1st-4th digits. She has had symptoms for quite some time and it is getting progressively worse. She denies any significant neck pain. She has symp toms mostly at night. A carpal tunnel splint has provided some relief. She does have a his tory of diabetes and hypothyroidism. Nerve Conduction Studies Anti Sensory Summary Table Site NR Peak (ms) Norm Peak (ms) P-T Amp (V) Norm P-T Amp Site1 Site2 Delta-P (ms) Dist (cm) Nico (m/s) Norm Nico (m/s) Left Radial Anti Sensory (Base 1st Digit) Wrist 2.3 <3.1 23.6 Wrist Base 1st Digit 2.3 10.0 43 Right Radial Anti Sensory (Base 1st Digit) Wrist 2.4 <3.1 34.3 Wrist Base 1st Digit 2.4 0.0 Motor Summary Table Site NR Onset (ms) Norm Onset (ms) O-P Amp (mV) Norm O-P Amp Site1 Site2 Delta-0 (ms) Dist (cm) Nico (m/s) Norm Nico (m/s) Left Median Motor (Abd Poll Brev) Wrist 3.9 <4.2 *4.1 >5 Elbow Wrist 4.4 20.0 *45 >50 Elbow 8.3 4.0 Right Median Motor (Abd Poll Brev) Wrist *10.7 <4.2 *3.1 >5 Elbow Wrist 4.3 21.0 *49 >50 Elbow 15.0 3.4 Left Ulnar Motor (Abd Dig Minimi) Wrist 2.8 <4.2 8.6 >3 B Elbow Wrist 3.4 18.0 53 >53 B Elbow 6.2 8.2 A Elbow B Elbow 1.8 10.0 56 >53 A Elbow 8.0 8.2 Right Ulnar Motor (Abd Dig Minimi) Wrist 2.7 <4.2 11.1 >3 B Elbow Wrist 4.0 20.0 *50 >53 B Elbow 6.7 10.8 A Elbow B Elbow 2.0 10.0 *50 >53 A Elbow 8.7 9.4 Comparison Summary Table Site NR Peak (ms) Norm Peak (ms) P-T Amp (V) Site1 Site2 Delta-P (ms) Norm Delta (ms) Left Median/Ulnar Palm Comparison (Wrist - 8cm) Median Palm *2.5 <2.2 24.8 Median Palm Ulnar Palm *0.8 <0.3 Ulnar Palm 1.7 <2.2 42.1 Right Median/Ulnar Palm Comparison (Wrist - 8cm) Median Palm *4.8 <2.2 7.6 Median Palm Ulnar Palm *2.5 <0.3 Ulnar Palm *2.3 <2.2 11.5 EMG Side Muscle Nerve Root Ins Act Fibs Psw Amp Dur Poly Recrt Int Pat Comment Right Deltoid Axillary C5-6 Nml Nml Nml Nml Nml 0 Nml Nml Right Biceps Musculocut C5-6 Nml Nml Nml Nml Nml 0 Nml Nml Right Triceps Radial C6-7-8 Nml Nml Nml Nml Nml 0 Nml Nml Right PronatorTeres Median C6-7 Nml Nml Nml Nml Nml 0 Nml Nml Right 1stDorInt Ulnar C8-T1 Nml Nml Nml Nml Nml 0 Nml Nml Left Deltoid Axillary C5-6 Nml Nml Nml Nml Nml 0 Nml Nml Left Biceps Musculocut C5-6 Nml Nml Nml Nml Nml 0 Nml Nml Left Triceps Radial C6-7-8 Nml Nml Nml Nml Nml 0 Nml Nml Left PronatorTeres Median C6-7 Nml Nml Nml Nml Nml 0 Nml Nml Left 1stDorInt Ulnar C8-T1 Nml Nml Nml Nml Nml 0 Nml Nml Nerve Conduction Studies Motor Left/Right Comparison Site L Lat (ms) R Lat (ms) L-R Lat (ms) L Amp (mV) R Amp (mV) L-R Amp (%) Site1 Site2 L Ve l (m/s) R Nico (m/s) L-R Nico (m/s) Median Motor (Abd Poll Brev) Wrist 3.9 *10.7 *6.8 *4.1 *3.1 24.4 Elbow Wrist *45 *49 4 Elbow 8.3 15.0 6.7 4.0 3.4 15.0 Ulnar Motor (Abd Dig Minimi) Wrist 2.8 2.7 0.1 8.6 11.1 22.5 B Elbow Wrist 53 *50 3 B Elbow 6.2 6.7 0.5 8.2 10.8 24.1 A Elbow B Elbow 56 *50 6 A Elbow 8.0 8.7 0.7 8.2 9.4 12.8 Anti Sensory Left/Right Comparison Site L Lat (ms) R Lat (ms) L-R Lat (ms) L Amp (V) R Amp (V) L-R Amp (%) Site1 Site2 L Nico (m/s) R Nico (m/s) L-R Nico (m/s) Radial Anti Sensory (Base 1st Digit) Wrist 2.3 2.4 0.1 23.6 34.3 31.2 Wrist Base 1st Digit 43 Comparison Left/Right Comparison Site L Lat (ms) R Lat (ms) L-R Lat (ms) L Amp (V) R Amp (V) L-R Amp (%) Median/Ulnar Palm Comparison (Wrist - 8cm) Median Palm *2.5 *4.8 2.3 24.8 7.6 69.4 Ulnar Palm 1.7 *2.3 0.6 42.1 11.5 72.7 NCV FINDINGS: Evaluation of the Left median motor nerve showed reduced amplitude and decreased conduction velocity (Elbow-Wrist). The Right median motor nerve showed prolonged distal onset latency , reduced amplitude, and decreased conduction velocity (Elbow-Wrist). The Right ulnar motor nerve showed decreased conduction velocity (B Elbow-Wrist) and decreased conduction velocit y (A Elbow-B Elbow). The Left median/ulnar (palm) comparison nerve showed prolonged distal peak latency (Median Palm) and abnormal peak latency difference (Median Palm-Ulnar Palm). T he Right median/ulnar (palm) comparison nerve showed prolonged distal peak latency (Median P laila), prolonged distal peak latency (Ulnar Palm), and abnormal peak latency difference (Medi an Palm-Ulnar Palm). All remaining nerves (as indicated in the preceding tables) were withi n normal limits. EMG FINDINGS: All examined muscles (as indicated in the preceding table) showed no evidence of electrical instability. IMPRESSION: There is electrodiagnostic evidence of median neuropathy at the wrist on the left. This is consistent with a clinical diagnosis of carpal tunnel syndrome. The severity would be cons idered severe on the right. There were scattered conduction velocity abnormalities, more apparent on the right. This i s likely due to an early peripheral neuropathy as she does have diabetes and hypothyroidism. There was no electrodiagnostic evidence of ulnar neuropathy, cervical radiculopathy or brac hial plexopathy. The patient did inform me that she has an appointment with Dr. Santos tomorrow to jabier s the findings of today s study with him. Given the severity of the findings I do believe he will likely offer carpal tunnel surgery on the right. Thank you for allowing me to perform neurodiagnostic testing on your patient. If you have a ny further questions or comments, please do not hesitate to call. Hang Cary MD Fellow, [employer] [place] [employer]. documented in th is encounter Plan of Treatment Not on filedocumented as of this encounter Visit Diagnoses + + | Diagnosis | + + | Carpal tunnel syndrome of right wrist - Primary Carpal tunnel syndrome | + + documented in this encounter
--- OUTSIDE RECORDS SUMMARY | ~2019-04-25 | XMS | Encounter Summary ---
Demographics + + + | Address | [address] | | | [place] [address] | + + + | Home Phone | | + + + | Preferred Language | Unknown | + + + | Marital Status | Unknown | + + + | Samaritan Affiliation | Unknown | + + + | Race | Unknown | + + + | Ethnic Group | Unknown | + + + Author + + + | Author | [facility] | | | and [place] | + + + | Organization | [facility] | | [...] Team Providers + +------+ + | Care Senior Climate Advisor Name | Role | Phone | + +------+ + | Prince Penny PA-C | PCP | | + +------+ + Reason for Visit +---------+ + | Reason | Comments | +---------+ + | Post Op | rt CTR sut out | +---------+ + Encounter Details +--------+---------+ + + + | Date | Type | Department | Care Team | Description | +--------+---------+ + + + | 02/10/ | Office | [facility] | Que Santos | S/P orthopedic | | 2013 | Visit | ORTHOPEDIC SURGERY | MD Kevin [address] [facility] | surgery, follow-up | | | | [address] [facility] | [place], [place] | exam (Primary Dx) | | | | [place], [place] | [address] | | | | | [address] | | | | | | [phone] | | | +--------+---------+ + + + [...] + + + + | Temperature | 36.8 C (98.3 F) | 02/10/2014 9:38 AM | | | | | PDT [...] + + + + | Weight | - | - | | + + + + + | Height | - | - | | + + + + + | Body Mass Index | - | - | | + + + + + documented in this encounter Progress Notes Que Santos MD - 02/10/2014 1:33 PM PDTSee ariella note [id number].Electronically nima d by Que Santos MD at 02/10/2014 1:33 PM Que Sparrow MD - 02/10/2014 12:00 AM PDT ORTHOPEDICS [address] [place] [address] FAX: [phone] OFFICE VISIT Meghan returns today for followup of her right carpal tunnel release performed on 4. Today, she notes that her right hand is feeling comfortable. she has no complaints. She would like to return to work activities after . Her job is relatively sedentary. EXAM The patient's right hand is examined. The incision is clean, dry, and healing nicely. There is no evidence of drainage or infection. ADVICE: Today the patient's sutures were removed and benzoin and Steri-Strips were applied. She was advised to continue to use her wrist splint for at least one more week, after whic h she may wean herself away from use of the splint. We have given her a return to work slip dated for 02/15/2013. We will plan to see Meghan back for a clinical check in approximatel y 1 month. Que Santos MD RH / PAP JOB #: [id number] signed by Que Santos MD at 02/24/2014 3:39 PM PDTdo cumented in this encounter Plan of Treatment Not on filedocumented as of this encounter Visit Diagnoses + + | Diagnosis | + + | S/P orthopedic surgery, follow-up exam - Primary Follow-up examination, following | | other surgery | + + documented in this encounter"
--- OUTSIDE RECORDS SUMMARY | ~2019-04-25 | XMS | Clinical Summary ---
Demographics + + + | Address | [address] | | | [place] [address] | + + + | Home Phone | | + + + | Preferred Language | Unknown | + + + | Marital Status | Unknown | + + + | Presybeterian Affiliation | Unknown | + + + | Race | Unknown | + + + | Ethnic Group | Unknown | + + + Author + + + | Author | [facility] | | | and [place] | + + + | Organization | [facility] | | | [...] Team Providers + +------+ + | Care Software Security Consultant Name | Role | Phone | + +------+ + | Prince Penny PA-C | PCP | | + +------+ + Allergies + + [...] | 37.2 C (99 F) | 03/17/2014 10:56 AM | | | | | PDT [...] | | + + + + + Plan of Treatment [...] | + + + + + | Breast Cancer | | | | | Screening | 1 | | | + + + + + | Vaccine: Zoster (1 | | | | | of 2) | 6 | | | + + + + + | Vaccine: Influenza | | | | | (#1) | 9 | | | + + [...] +--------+ +---------+--------+ | [employer] | [employer] | [id number] | 06/16/19 | [phone] | | PPO | | | E BCBS | 7 | 14-Pre | 8 | | | | | [place] | | sent | | | | | | PPO | | | | | | + +--------+ +--------+ +---------+--------+ | FOR[facility]LY [facility] | IHS | [id number] | 09/15/19 | | | Indemn | [...] | [address] | | | al/[place]un[place] | | 1966 | [phone] | [place] [address] | | | [place]ovan | | | 7 (Home) | | + +--------+ +--------+ + + Advance Directives + + + + + | Type | Date Recorded | Patient | Explanation | | | | Pan Operator | | + + + + + | Power of | | | | | Utility Helicopter Repairer | | | | + + + + + | Advance | 01/26/2014 10:07 | | | | Directive | AM | | | + + + + + + + + + + | Code Status | Date | Date | Comments | | | Activated | Inactivated | | + + + + + | Full Code | 01/26/2014 | 01/26/2014 | | | | 12:27 PM | 2:52 PM | | + + + + +
--- OUTSIDE RECORDS SUMMARY | ~2019-04-25 | XMS | Encounter Summary ---
Demographics + + + | Address | [address] | | | [place] [address] | + + + | Home Phone | | + + + | Preferred Language | Unknown | + + + | Marital Status | Unknown | + + + | Religion Affiliation | Unknown | + + + | Race | Unknown | + + + | Ethnic Group | Unknown | + + + Author + + + | Author | [facility] | | | and [place] | + + + | Organization | [facility] | | | and [...] Team Providers + +------+ + | Care Wearing Apparel Assembler Name | Role | Phone | + +------+ + | Prince Penny PA-C | PCP | | + +------+ + Encounter Details +--------+ + + + + | Date | Type | Department | Care Team | Description | +--------+ + + + + | 11/22/ | Orders Only | [facility] | Que Santos | Right wrist pain | | 2013 | | ORTHOPEDIC SURGERY | MD Kevin [address] [facility] | (Primary Dx) | | | | [address] [facility] | [place] | | | | | [place] | [address] | | | | | [address] | | | | | | [phone] | | | +--------+ + + + [...] Pain in joint, forearm | + + documented in this encounter"
--- OUTSIDE RECORDS SUMMARY | ~2019-04-25 | XMS | Encounter Summary ---
Demographics + + + | Address | [address] | | | [place] [address] | + + + | Home Phone [...] + + + | Author | [facility] | | | and [place] | + + + | Organization | [facility] | | | [...] Team Providers + +------+ + | Care Javascript Engineer Name | Role | Phone | + +------+ + | Prince Penny PA-C | PCP | | + +------+ + Encounter Details +--------+ + + + + | Date | Type | Department | Care Team | Description | +--------+ + + + + | 11/23/ | Hospital | [facility] | Que Santos | Right wrist pain | | 2013 | Encounter | [facility] | MD Kevin [address] [facility] | | | | | [address] [place] | [place] | | | | | [place] | [address] | | | | | [address] | | | | | | [phone] | | | +--------+ + + + [...] | ergocalciferol | | | 0 | /09/02 | | | (VITAMIN D-2) 50,000 | [...] mEq by mouth | | 0 | 06//20 | | | CR tablet | Daily. | | | 14 | | + + + +---------+ + + | LOVAZA 1 G capsule | Take by mouth 2 | | 0 | 03/15/20 | | | | times daily. | [...] + + + +---------+ + + | ciprofloxacin | | | 0 | 11/17/19 | | | (CIPRO) 500 mg | | | | 14 | [...] | 0 | 10/15/19 | | | (LANGRIFFIN MCCORMICKAR [place]) | under the skin | | [...] | + +--------+ + + + | XR WRIST RIGHT 3 + | Routin | 11/23/2013 | Right wrist pain | Results for this | | VW | e | 2:19 PM | | procedure are in the | | | | PDT | | results section. | + +--------+ + + + documented in this encounter Results XR Wrist Right 3 [...] + | MISCELLANEOUS LAB | | | [phone] | + +---------+ + + | MISCELANIOUS LAB | | | [phone] | + +---------+ + + documented in this encounter Visit Diagnoses + + | Diagnosis | + + | Right wrist pain Pain in joint, forearm | + + documented in this encounter"
--- OUTSIDE RECORDS SUMMARY | ~2019-04-25 | XMS | Encounter Summary ---
Demographics + + + | Address | [address] | | | [place] [address] | + + + | Home Phone | | + + + | Preferred Language | Unknown | + + + | Marital Status | Unknown | + + + | Zoroastrian Affiliation | Unknown | + + + | Race | Unknown | + + + | Ethnic Group | Unknown | + + + Author + + + | Author | [facility] | | | and [place] | + + + | Organization | [facility] | | | [...] Team Providers + +------+ + | Care Building Architectural Designer Name | Role | Phone | + [...] | | | | | | | [place] | | | | | | [...] | | | | | [address] | [address] [place] | | | | | [place] | [address] | | | | | [address] | | | | | | [phone] | | | +--------+ + + + [...]
--- OUTSIDE RECORDS SUMMARY | ~2019-04-25 | XMS | Clinical Summary ---
Demographics + + + | Address | [address] | | | [place] [address] | + + + | Home Phone | | + + + | Preferred Language | Unknown | + + + | Marital Status | Unknown | + + + | Shinto Affiliation | Unknown | + + + | Race | Unknown | + + + | Ethnic Group | Unknown | + + + Author + + + | Author | [facility] | | | and [place] | + + + | Organization | [facility] | | | [...] Team Providers + +------+ + | Care Houseperson Name | Role | Phone | + [...] +--------+ +---------+--------+ | [employer] | [employer] | [id number] | 06/16/19 | [phone] | | PPO | | | E BCBS | 7 | 14-Pre | 8 | | | | | [place] | | sent | | | | | | PPO | | | | | | + +--------+ +--------+ +---------+--------+ | FORMERLY [facility] | IHS | [id number] | 09/15/19 | | | Indemn | [...] | 1966 | [phone] | [place] [address] | | | [place] | | | 7 (Home) | | + +--------+ +--------+ + + Advance Directives + + + + + | Type | Date Recorded | Patient | Explanation | | | | Financial Processing Clerk | | + + + + + | Power of | | | | | Sales Promotion Coordinator | | | | + + + [...]
--- OUTSIDE RECORDS SUMMARY | ~2019-04-25 | XMS | Encounter Summary ---
Demographics + + + | Address | [address] | | | [place] [address] | + + + | Home Phone | | + + + | Preferred Language | Unknown | + + + | Marital Status | Unknown | + + + | Methodist Affiliation | Unknown | + + + [...] Team Providers + +------+ + | Care Cathode Washer Name | Role | Phone | + [...] + + | 02/10/ | Office | [facility] | Que Santos | S/P orthopedic | | 2013 | Visit | ORTHOPEDIC SURGERY | MD Kevin [address] [facility] | surgery, follow-up | | | | [address] [facility] | [place] | exam (Primary Dx) | | | | [place], [place] | [address] | | | | | [address] | | | | | | [phone] | | | +--------+---------+ + + + [...] Santos MD - 02/10/2014 1:33 PM PDTSee arielal note [id number].Electronically nima d by Que Santos MD at 02/10/2014 1:33 PM Que Sparrow MD - 02/10/2014 12:00 AM PDT ORTHOPEDICS [address] [place] [address] FAX: [phone] OFFICE VISIT Meghan returns today for followup [...] Santos MD RH / PAP JOB #: [id number] signed by Que Santos MD at 02/24/2014 3:39 PM PDTdo cumented in this encounter Plan of Treatment Not on filedocumented as of this encounter Visit Diagnoses + + | Diagnosis | + + | S/P orthopedic surgery, follow-up exam - Primary Follow-up examination, following | | other surgery | + + documented in this encounter"
--- OUTSIDE RECORDS SUMMARY | ~2019-04-25 | XMS | Encounter Summary ---
Demographics + + + | Address | [address] | | | [place] [address] | + + + | Home Phone | | + + + | Preferred Language | Unknown | + + + | Marital Status | Unknown | + + + | Cheondoism Affiliation | Unknown | + + + | Race | Unknown | + + + | Ethnic Group | Unknown | + + + Author + + + | Author | [facility] | | | and [place] | + + + | Organization | [facility] | | | [...] Team Providers + +------+ + | Care Ux Ui Designer Name | Role | Phone | + +------+ + | Prince Penny PA-C | PCP | | + +------+ + Reason for Visit +---------+ + | Reason | Comments | +---------+ + | Post Op | rt CTR dos 01/26/14 | +---------+ + Encounter Details +--------+---------+ + + + | Date | Type | Department | Care Team | Description | +--------+---------+ + + + | 03/17/ | [facility] | Que Santos | S/P orthopedic | | 2013 | Visit | ORTHOPEDIC SURGERY | MD Kevin [address] [facility] | surgery, follow-up | | | | [address] [facility] | [place] | exam (Primary Dx) | | | | [place] | [address] | | | | | [address] | | | | | | [phone] | | | +--------+---------+ + + + [...] encounter Progress Notes Que Santos MD - 03/18/2014 3:27 PM PDTSee soap note [id number].Electronically nima d by Que Santos MD at 03/18/2014 3:28 PM Que Sparrow MD - 03/17/2014 12:00 AM PDT ORTHOPEDICS [address] [place] [id number] FAX: [phone] OFFICE VISIT Meghan Ledesma returns today for followup of her right carpal tunnel release performed Janus t 13, 1-2/3 months ago. Today, she notes that her right hand is feeling comfortable and she is pleased with the surgical result. She has been able to return to regular work activitie s without restriction. EXAM: The patient's right hand is examined. The incision is nicely healed. The patient has full range of motion of the right hand with good engagement quality consultant strength. ADVICE: Overall, Meghan has done well. She is pleased with the surgical results. She has r eturned to regular activities and we therefore will see her back in the future as needed. Que Santos MD RH / AF JOB #: [id number] signed by Que Santos MD at 03/28/2014 7:48 AM PDTdo cumented in this encounter Plan of Treatment Not on filedocumented as of this encounter Visit Diagnoses + + | Diagnosis | + + | S/P orthopedic surgery, follow-up exam - Primary Follow-up examination, following | | other surgery | + + documented in this encounter"
--- OUTSIDE RECORDS SUMMARY | ~2019-04-25 | XMS | Clinical Summary ---
Demographics + + + | Address | [address] | | | [place] [address] | + + + | Home Phone | | + + + | Preferred Language | Unknown | + + + | Marital Status | Single | + + + | Sikh Affiliation | Unknown | + + + | Race | Unknown | + + + | Ethnic Group | Unknown | + + + Author + + + | Author | [facility] (Historical as of | | | 01-30-19) | + + + | Organization | [facility] (Historical as of | | | 01-30-19) | + + + | Address | Unknown | + + + | Phone | Unavailable | + + + Support + + +---------+ + | Name | Relationship | Address | Phone | + + +---------+ + | No,Contact | ECON | Unknown | | + + +---------+ + | Detailed,Medical | ECON | Unknown | | + + +---------+ + Care Team Providers + +------+ + | Care Car Rental Service Attendant Name | Role | Phone | + +------+ + PP | Unavailable | + +------+ + Allergies + + + + + + | Active Allergy | Reactions | Severity | Noted | Comments | | | | | Date | | + + + + + + | Penicillins | Other (See Comments) | Medium | 11/06/19 | Diagnosed when she | | | | | 13 | was a child | + + + + + + Current Medications + + +-------+---------+------+------+-------+ | Prescription | Sig. | Disp. | Refills | Star | End | Statu | | | | | | t | Date | s | | | | | | Date | | | + + +-------+---------+------+------+-------+ | metformin | Take 1,000 mg by | | | | | Activ | | (GLUCOPHAGE) 1000 MG | mouth nightly. | | | | | e | | tablet | | | | | | | + + +-------+---------+------+------+-------+ | glyBURIDE | Take 10 mg by mouth | | | | | Activ | | (DIABETA) 5 MG | daily with | | | | | e | | tablet | breakfast. | | | | | | + + +-------+---------+------+------+-------+ | diltiazem (TIAZAC) | Take 180 mg by mouth | | | | | Activ | | 180 MG 24 hr | daily. Indications: | | | | | e | | capsuleIndications: | High Blood Pressure | | | | | | | Hypertension | | | | | | | + + +-------+---------+------+------+-------+ | | Take 1 tablet by | | | | | Activ | | loratadine-pseudoeph | mouth 2 (two) times | | | | | e | | edrine (CLARITIN-D | daily. | | | | | | | 12-HOUR) 5-120 MG | | | | | | | | per tablet | | | | | | | + + +-------+---------+------+------+-------+ | aspirin 81 MG EC | Take 81 mg by mouth | | | | | Activ | | tablet | daily with | | | | | e | | | breakfast. | | | | | | + + +-------+---------+------+------+-------+ | Calcium | Take by mouth. | | | | | Activ | | Carbonate-Vitamin D | | | | | | e | | (CALCIUM + D PO) | | | | | | | + + +-------+---------+------+------+-------+ | ferrous gluconate | Take 325 mg by mouth | | | | | Activ | | (FERGON) 325 MG | daily with | | | | | e | | tablet | breakfast. | | | | | | + + +-------+---------+------+------+-------+ | omega-3 acid ethyl | Take 2 g by mouth 2 | | | | | Activ | | esters (LOVAZA) 1 G | (two) times daily. | | | | | e | | capsule | | | | | | | + + +-------+---------+------+------+-------+ | insulin glargine | Inject 10 Units into | | | | | Activ | | (LANTUS) 100 UNIT/ML | the skin nightly. | | | | | e | | | Indications: | | | | | | | injectionIndications | Cex-Ywuhwpj-Twnuxgyq | | | | | | | : Type 2 Diabetes | t Diabetes | | | | | | | Mellitus | | | | | | | + + +-------+---------+------+------+-------+ Active Problems + + + | Problem | Noted Date | + + + | Diabetes mellitus (HCC) | 11/16/2012 | + + + | Hypertension | 11/16/2012 | + + + Family History + + +------+ + | Medical History | Relation | Name | Comments | + + +------+ + | Diabetes | Father | | | + + +------+ + | Heart failure | Father | | | + + +------+ + | Cancer | Mother | | Lung cancer- non smoker and stomach cancer | + + +------+ + | Diabetes | Mother | | | + + +------+ + | Diabetes | Sister | | | + + +------+ + + +------+--------+ + | Relation | Name | Status | Comments | + +------+--------+ + | Father | | | | + +------+--------+ + | Mother | | | | + +------+--------+ + | Sister | | | | + +------+--------+ + Social History + +-------+ +--------+------+ | [...] +---------+ + | Yes | | | | + + +---------+ + + + + | Sex Assigned at | Date Recorded | | | | + + + | Not on file | | + + + Last Filed Vital Signs + + + + | Vital Sign | Reading | Time Taken | + + + + | Blood Pressure | 168/80 | 11/05/2012 11:35 AM PDT | + + + + | Pulse | - | - | + + + + | Temperature | - | - | + + + + | Respiratory Rate | - | - | + + + + | Oxygen Saturation | - | - | + + + + | Inhaled Oxygen | - | - | | Concentration | | | + + + + | Weight | 107.3 kg (236 lb 9.6 | 11/05/2012 11:35 AM PDT | | | oz) | | + + + + | Height | 162.6 cm (5' 4") | 11/05/2012 11:35 AM PDT | + + + + | Body Mass Index | 40.61 | 11/05/2012 11:35 AM PDT | + + + + Plan [...] Not on filefrom Last 3 Months Insurance +---------+--------+ +------+-------+ + | Payer | Benefi | Subscriber | Type | Phone | Address | | | t Plan | ID | | | | | | / | | | | | | | Group | | | | | +---------+--------+ +------+-------+ + | PREMERA | PREMER | [id number] | | | [address] [address] | | | A BLUE | 7 | | | [place], [place] | | | CARD | | | | [phone] | +---------+--------+ +------+-------+ + + +--------+ +--------+ + + | Guarantor Name | Accoun | Relation to | Date | Phone | Billing Address | | | t Type | Patient | of | | | | | | | | | | + +--------+ +--------+ + + | MEGHAN LEDESMA | Person | Self [birth year] | Home: | [address] | | | al/Fam | | [phone] | [phone] [place] [address] | | | jovan | | [phone] | | + +--------+ +--------+ + +
--- OUTSIDE RECORDS SUMMARY | ~2019-04-25 | XMS | Encounter Summary ---
Demographics + + + | Address | [address] | | | [place] [address] | + + + | Home Phone | | + + + | Preferred Language | Unknown | + + + | Marital Status | Unknown | + + + | Sabianism Affiliation | Unknown | + + + | Race | Unknown | + + + | Ethnic Group | Unknown | + + + Author + + + | Author | [facility] | | | and [place] | + + + | Organization | [facility] | | | and [...] Team Providers + +------+ + | Care Quality Assurance Auditor Name | Role | Phone | + +------+ + PCP | Unavailable | + +------+ + Encounter Details +--------+ + + + + | Date | Type | Department | Care Team | Description | +--------+ + + + + | 03/31/ | Hospital | [facility] | Gaston Trevino MD | | | 2006 - | Encounter | MED CTR MED ON[facility] | [address] [place] | | | | | [address] | [address], | | | 04/02/ | | [place] [address] | [place] [address] | | | 2006 | | [phone] | [phone] | | | | | | | [...]
--- OUTSIDE RECORDS SUMMARY | ~2019-04-25 | XMS | Encounter Summary ---
Demographics + + + | Address | [address] | | | [place] [address] | + + + | Home Phone | | + + + | Preferred Language | Unknown | + + + | Marital Status | Unknown | + + + | Advent Affiliation | Unknown | + + + | Race | Unknown | + + + | Ethnic Group | Unknown | + + + Author + + + | Author | [facility] | | | and [place] | + + + | Organization | [facility] | | [...] Team Providers + +------+ + | Care Deputy Attorney General Name | Role | Phone | + +------+ + | Prince Penny PA-C | PCP | | + +------+ + Reason for Visit + + + | Reason | Comments | + + + | Pre-op Exam | right CTR | + + + Encounter Details +--------+---------+ + + + | Date | Type | Department | Care Team | Description | +--------+---------+ + + + | 01/24/ | Office | [facility] | Que Santos | Carpal tunnel | | 2013 | Visit | ORTHOPEDIC SURGERY | MD Kevin [address] [facility] | syndrome of right | | | | [address] [facility] | [place] | wrist (Primary Dx) | | | | [place], [place] | [address] | | | | | [address] | | | | | | [phone] | | | +--------+---------+ + + + [...] + + + + | Temperature | 37 C (98.6 F) | 01/24/2014 9:31 AM | | | | | PDT [...] + + + + | Weight | 108.9 kg (240 lb) | 01/24/2014 9:31 AM | | | | | PDT | | + + + + + | Height | 162.6 cm (5' 4") | 01/24/2014 9:31 AM | | | | | PDT | | + + + + + | Body Mass Index | 41.2 | 01/24/2014 9:31 AM | | | | | PDT | | + + + + + documented in this encounter Plan of Treatment Not on filedocumented as of this encounter Visit Diagnoses + + | Diagnosis | + + | Carpal tunnel syndrome of right wrist - Primary Carpal tunnel syndrome | + + documented in this encounter
--- OUTSIDE RECORDS SUMMARY | ~2019-04-25 | XMS | Encounter Summary ---
Demographics + + + | Address | [address] | | | [place] [address] | + + + | Home Phone | | + + + | Preferred Language | Unknown | + + + | Marital Status | Unknown | + + + | Congregational Affiliation | Unknown | + + + [...] Team Providers + +------+ + | Care Supervisor Finishing Department Name | Role | Phone | + [...] + + | 03/17/ | Office | [facility] | Que Santos | S/P orthopedic | | 2013 | Visit | ORTHOPEDIC SURGERY | MD Kevin [address] [facility] | surgery, follow-up | | | | [address] [facility] | [place] | exam (Primary Dx) | | | | [place] | [address] | | | | | [address] | | | | | | [phone] | | | +--------+---------+ + + + [...] - 03/18/2014 3:27 PM PDTSee soap note [id number].Electronically nima d by Que Santos MD at 03/18/2014 3:28 PM Que Sparrow MD - 03/17/2014 12:00 AM PDT ORTHOPEDICS [address] [place] [address] [id number] FAX: [phone] OFFICE VISIT Meghan Ledesma returns today for [...] motion of the right hand with good grapple operator strength. ADVICE: Overall, Meghan has done well. She is pleased with the surgical results. She has r eturned to regular activities and we therefore will see her back in the future as needed. Que Santos MD RH / AF JOB #: [id number] signed by Que Santos MD at 03/28/2014 7:48 AM PDTdo cumented in this encounter Plan of Treatment Not on filedocumented as of this encounter Visit Diagnoses + + | Diagnosis | + + | S/P orthopedic surgery, follow-up exam - Primary Follow-up examination, following | | other surgery | + + documented in this encounter"
--- OUTSIDE RECORDS SUMMARY | ~2019-04-25 | XMS | Clinical Summary ---
Demographics + + + | Address | [address] | | | [place] [address] | + + + | Home Phone | | + + + | Preferred Language | Unknown | + + + | Marital Status | Single | + + + | Mandaen Affiliation | EPI | + + + [...] Team Providers + +------+ + | Care Combat Rifle Crewmember Name | Role | Phone | + +------+ + PCP | Unavailable | + +------+ + Source Comments [facility] is fully live on both [facility] and [facility]Patient[facility] Allergies Not on File Medications Not on file Active Problems Not [...] | + + Last Filed Vital Signs Not on file Plan of Treatment + + + + + | Health Maintenance | Due Date | Last Done | Comments | + + + + + | Influenza (Flu) | | | | | vaccination (#1) | 9 | | | + + + + + | Pneumococcal | Aged Out | | No longer eligible | | vaccination | | | based on patient's | | | | | age to complete this | | | | | topic | + + + + + Results Not on filefrom Last 3 Months"
--- OUTSIDE RECORDS SUMMARY | ~2019-04-25 | XMS | Encounter Summary ---
Demographics + + + | Address | [address] | | | [place] [address] | + + + | Home Phone | | + + + | Preferred Language | Unknown | + + + | Marital Status | Single | + + + | Religion Affiliation | EPI | + + + [...] Team Providers + +------+ + | Care Box Fabricator Name | Role | Phone | + +------+ + PCP | Unavailable | + +------+ + Encounter Details +--------+ + + + + | Date | Type | Department | Care Team | Description | +--------+ + + + + | 10/16/ | Office | | Report, Outpatient | Progress Note | | 2004 | Visit-Trans | | Consultation | | | | cribed | | | | +--------+ + + [...] as of this encounter Progress Notes Interface, Photographer News In - 01/12/2005 8:33 PM PDT Referred From and Faxed To: Dr. Mann Estevez. Referred To: Damion Hyde M.D., [facility] Consulting Physician: Damion Hyde M.D. Consultation Date: 10/17/[address] Sitz: Thank you for allowing me to consult on Ms. Meghan Ledesma. As you know, she is a 37-year-old with a history of diabetes, hypertension, and hypercholesterolemia, who presents today with the chief complaint of exercise-related hives. History: Details as per chart. Briefly, Ms. Ledesma indicates that for approximately the past 20 years, she has had an urticarial rash (hives) associated primarily with exercise, although sometimes with other triggers, including exposure to cold. She describes this rash as raised, erythematous, pruritic lesions approximately 0.5 to 1 cm in diameter, largely monomorphic, occurring head to toe, although sparing the palms and scalp. She has had rare associated possible angioedema (periocular) and on a few occasions possible suspected anaphylaxis. Most recently, according to records reviewed from September 19, 2003, she did appear to have a true exercise-induced anaphylactic episode, where she was found to be hypotensive in the Emergency Department, and responded to steroids, fluids, and pressors. She has been carrying an EpiPen, but has never used this injection epinephrine. She reports previously seeing an flag car driver in [place], [place], approximately four to five years ago, and reports that she was diagnosed with hot/cold urticaria. She thinks that she was allergy tested, but other than a sensitivity to dust, she cannot recall the results. She has not seen a binman nor had a biopsy. She feels that overall her symptoms had been improving until this recent episode. It is notable that this episode occurred after starting treatment with an EDER inhibitor for her blood pressure. She has since been switched for a calcium channel ramon. She has had other milder episodes requiring emergency care, perhaps 10 times total, although the most severe was this most recent episode approximately one month ago. Lesions resolve without permanent pigmentary manager change perhaps two or three hours, and do resolve spontaneously, although also improve with antihistamine treatment. Particular note is made that her pruritus appears to be relatively mild. She reports that approximately 10 minutes on the treadmill is tolerated, whereas 20 is enough to fairly reliably trigger these symptoms. They are also triggered by other cholinergic triggers, including heat, non-specific sweating, and as noted above, exposure to cold as well. She notes no particular correlation with any foods (including no association with eating or postprandial episodes, including the combination of food followed by exercise), nor any association with alcohol, solar exposure (apart from sweating), pressure, scratching, etc. She has occasionally used non-steroidal anti-inflammatory drugs with no obvious correlation on these symptoms. She takes no herbs or supplements and uses no traditional medicines. She began oral contraceptives approximately 18 months ago with no obvious change in these symptoms. She notes no specific correlation with any soaps, cosmetics, toiletries, or other contactants, and note is made that she uses no herbal products on the skin. Past Medical History/Review of Systems: As per chart. As noted, history of diabetes, hypercholesterolemia, and hypertension. She has no history of asthma, allergies, or sinus disease, and no history of other dermatologic disease. She has not had any associated illness or infection, including no history of hepatitis, no unusual changes in weight or appetite, no history of joint symptoms or arthritis, no history of lupus. She has had a TSH suggestive of hyperthyroidism in the past, although upon discussion by telephone with her primary care doctor, thyroid function studies have been repeated and recently have remained within normal limits. Family History: Sister with urticaria, although apparently this is not exercise-associated. Sister has also had food allergies, including angioedema. There is a paternal history of asthma, although no family history of seasonal allergies. 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 She reports no unusual exposures to dust, fumes, chemicals, etc. She has no pets. She occasionally smokes intermittently a few times per month and drinks perhaps six alcoholic beverages monthly. She reports no foreign travel, although is planning a trip to [place] in the future. Current Medications: 1. She has been using Zyrtec 10 mg p.o. q.d. 2. Benadryl 50 mg p.o. q.h.s.. 3. Has used antihistamines for rescue from mild exercise-associated urticarial symptoms. 4. She has tried Hismanal in the past, although never tried H2 antihistamines or anti-leukotriene therapies. 5. She has used hydroxyzine in the past, although she found this difficult to tolerate due to sedation. 6. According to the notes reviewed, apparently she has used ephedrine in the past for these symptoms, although patient did not indicate this during our discussion today. 7. She has also used oral steroids in the past, most recently a few years ago with unclear effects on these symptoms. She has used no topical treatments. 8. She does carry an EpiPen p.r.n. angioedema/anaphylaxis. 9. As has been noted, she has been switched from an EDER inhibitor to Diltiazem 240 mg daily, which she has used for approximately the past 10 days. 10. She started oral contraceptives 18 months ago. 11. Her only other medication is atorvastatin 20 mg daily. Allergies: PENICILLLIN. She suspects possible associated reactions related to ACIDIC FOODS, although not reproducibly/reliably. She reports no history of latex or nickel sensitivity. Physical Examination: VITAL SIGNS: Pulse 80, respirations 16, and blood pressure 174/98. GENERAL: She is well-appearing and in no acute distress. SKIN: Unremarkable with specifically no urticaria, angioedema, nor any dermatographism noted at today's clinic visit. HEENT: Her general medical exam is essentially, otherwise, unremarkable and is per chart. Eyes - Particular note made of conjunctivae clear. Nose - Nasal mucosa mildly to moderately swollen without inflammation or discharge. Sinuses are non-tender. CHEST: Lungs - Clear without wheezing. Data: Approximately 20-30 pages of outside notes, including laboratory results were reviewed from her primary care health provider (2003) and particular note made of the report from the recent anaphylactic episode (September 19, 2003), as well as a number of laboratory results; specifically, August 19, 2003, labs were notable for elevated cholesterol and lipid panel, mildly elevated glucose. Chemistry and liver function testing otherwise essentially unremarkable. Note also made of laboratory results from July 09, 2002,with markedly elevated glucose (358) and depressed TSH (0.29 with normal ranging from 0.4 to 4.0). A complete blood count with differential was unremarkable at that time. As discussed above, she has reportedly had thyroid function tests repeated, which have returned to within normal limits. 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 Recommendations: 1. Although H1 antihistamines are the mainstay of therapy for this condition (including particularly Zyrtec and/or hydroxyzine), nevertheless the severity of her symptoms suggest the addition of further prophylactic medication therapy, including specifically H2 antihistamines (Zantac 300 mg p.o. daily) as well as possibly the further addition of anti-leukotriene therapy (Singulair 10 mg p.o. daily). Thus, to summarize, I would suggest that she remain on her Zyrtec, add Zantac and possibly also Singulair as prophylaxis, while reserving the use of sedating antihistamines for breakthrough symptoms (and I suggest that Atarax may be substituted for Benadryl in this instance). Although relatively uncommon, true exercise-induced anaphylaxis has been associated with this condition, and she indeed appears to have had this occur last month. I strongly agree with her continued maintenance of injection epinephrine at all times, and these issues were reviewed in detail, including appropriate indications for the use of an EpiPen, proper administration technique, etc. She was advised that should she require the use of injection epinephrine for severe potentially life-threatening angioedema/anaphylaxis, she is to proceed directly to emergency medical care and promptly notify her physicians. She was also advised to be extremely cautious with her known triggers, such as exercise, temperature changes, etc. For example, she was advised to always exercise with others present, and these individuals should be advised on rescue use of injection epinephrine should she be unable to self-administer this medication. 2. I also agree with the change in her anti-hypertensive therapy to avoid EDER inhibitors, and it is important to note that beta-blockers would have similar, if not greater concerns. As noted, she has begun treatment with calcium channel blockers, and this class of anti-hypertensives is thought to provide additional MAST cell stabilizing properties and, thus, is an excellent choice in this setting. 3. As noted above, she does have a history of a low TSH and possible hyperthyroidism, but by report, more recent thyroid function studies have been within normal limits. It is of note that thyroid abnormalities are relatively commonly associated with chronic urticaria of various types, and I recommend that it would be prudent to continue to monitor thyroid function testing periodically, perhaps every six months or one year. This may be particularly important in the setting of significant cholinergic urticaria, as hyperthyroidism may substantially contribute to worsening of this condition. 4. Extensive patient education was provided with regard to cholinergic urticaria and exercise-induced anaphylaxis, including course, natural history, and management, including medications (benefits, risks, side effects, alternatives, etc.). Antihistamine prophylaxis was discussed in detail, as well as rescue use of antihistamines for mild ([id number]) signs/symptoms and injection epinephrine for severe (potentially life-threatening) signs/symptoms of this condition. In addition to avoiding beta-blockers and EDER inhibitors, I would also suggest caution with regard to non-steroidal anti-inflammatory drugs (including aspirin), as these may be commonly associated with increased urticaria/angioedema as well. 5. She should return to the routine care of her primary care health provider, but is welcome to return to our clinic at any time. Given the significant severity and duration of these symptoms, I did suggest that she should return to our clinic at least once for follow-up in perhaps two months, but is welcome to return at any time. If you or the patient have any questions, please feel free to call us at any time. Again, thank you for allowing us to consult on your patient. Sincerely yours, Damion Hyde Jr., M.D. RANDALL/roger A C: 11/04/2003 [id number] cc: documente d in this encounter Plan of Treatment Not on filedocumented as of this encounter Visit Diagnoses Not on filedocumented in this encounter"
--- OUTSIDE RECORDS SUMMARY | ~2019-04-25 | XMS | Encounter Summary ---
Demographics + + + | Address | [address] | | | [place] [address] | + + + | Home Phone | | + + + | Preferred Language | Unknown | + + + | Marital Status | Single | + + + | Confucianism Affiliation | EPI | + + + [...] Providers + +------+ + | Care Supervisor Wire Rope Fabrication Name | Role | Phone | + [...] as of this encounter Progress Notes Interface, Pole Framer In - 01/12/2005 8:33 PM PDT Referred [...] injection epinephrine. She reports previously seeing an elastic attacher zigzag in [place], [place], approximately four to five years ago, and reports that she was diagnosed with hot/cold urticaria. She thinks that she was allergy tested, but other than a sensitivity to dust, she cannot recall the results. She has not seen a senior systems architect nor had a biopsy. She feels that [...] month ago. Lesions resolve without permanent pigmentary cell changer perhaps two or three hours, and do [...] allergies. 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 She reports no unusual exposures to dust, [...] as rescue use of antihistamines for mild (lgb-zxyc-mdpqrdihhzs) signs/symptoms and injection epinephrine for severe (potentially [...] Jr., M.D. RANDALL/roger A C: 11/04/2003 AMARJIT [id number] cc: documente d in this encounter Plan of Treatment Not on filedocumented as of this encounter Visit Diagnoses Not on filedocumented in this encounter"
--- OUTSIDE RECORDS SUMMARY | ~2019-04-25 | XMS | Encounter Summary ---
Demographics + + + | Address | [address] | | | [place] [address] | + + + | Home Phone | | + + + | Preferred Language | Unknown | + + + | Marital Status | Unknown | + + + | Mormon Affiliation | Unknown | + + + | Race | Unknown | + + + | Ethnic Group | Unknown | + + + Author + + + | Author | [facility] | | | and [place] | + + + | Organization | [facility] | | | and [...] Team Providers + +------+ + | Care Coke Drawer Hand Name | Role | Phone | + +------+ + | Prince Penny PA-C | PCP | | + +------+ + Reason for Visit + + + | Reason | Comments | + + + | Dressing Change | rt CTR | + + + Encounter Details +--------+ + + + + | Date | Type | Department | Care Team | Description | +--------+ + + + + | 01/28/ | Clinical | [facility] [place] | Que Santos | Dressing change or | | 2013 | Support | ORTHOPEDIC SURGERY | MD Kevin [address] [facility] | removal, surgical | | | | [address] [facility] | [place] | wound (Primary Dx); | | | | [place] | [address] | Aftercare for | | | | [address] | | fitting and | | | | [phone] | | adjustment of brace | +--------+ + + + + Social [...] documented as of this encounter Progress Notes Jessica Jeffery LPN - 01/28/2014 10:52 AM PDTPatient came into office for a dressing ybarra ge which was done. Patient had a rt carpal tunnel release on 01/26/14. Incision is intact, no drainage, no redness or odor. A 2 x 4 Band aid was applied to incision and also put on a [facility] [place] and wrist brace. Patient was instructed to keep incision clean and dry, change ban d aid daily, elevate and wiggle fingers throughout the day. Patient also instructed to conta ct our office immediately if she experiences any of these symptoms. Patient voiced larry george. Patient confirmed she will be here for 02/12/14 scheduled follow-up appt in our office. Patient will call with any question or concerns, if any, between now and the appointment. documented in this encounter Plan of Treatment Not on filedocumented as of this encounter Visit Diagnoses + + | Diagnosis | + + | Dressing change or removal, surgical wound - Primary Encounter for change or removal | | of surgical wound dressing | + + | Aftercare for fitting and adjustment of brace | + + documented in this encounter"
--- OUTSIDE RECORDS SUMMARY | ~2019-04-25 | XMS | Encounter Summary ---
Demographics + + + | Address | [address] | | | [place] [address] | + + + | Home Phone | | + + + | Preferred Language | Unknown | + + + | Marital Status | Single | + + + | Pentecostalism Affiliation | EPI | + + + [...] Team Providers + +------+ + | Care Branch Administrator Name | Role | Phone | + [...] as of this encounter Progress Notes Interface, Public Policy Mediator In - 01/13/2005 7:32 AM PDT [place] [address] [facility] [place], [place] [id number] or January 23, 2004 Armida Estevez M.D. [facility] [address] [place] [address] RE: MEGHAN LEDESMA MR #: [id number] Dear Dr. Estevez: As you know, we [...] hot where she was staying in [facility]. Despite the very high temperatures which previously [...] I do agree that continuing to avoid EDER inhibitors and beta blockers would be important [...] Sincerely yours, Damion Hyde M.D. RANDALL GUZMAN [id number] / [id number] / [id number] / Tdocumented in this encounter Plan of Treatment Not on filedocumented as of this encounter Visit Diagnoses Not on filedocumented in this encounter
--- OUTSIDE RECORDS SUMMARY | ~2019-04-25 | XMS | Encounter Summary ---
Demographics + + + | Address | [address] | | | [place] [address] | + + + | Home Phone | | + + + | Preferred Language | Unknown | + + + | Marital Status | Unknown | + + + | Samaritan Affiliation | Unknown | + + + | Race | Unknown | + + + | Ethnic Group | Unknown | + + + Author + + + | Author | [facility] | | | and [place] | + + + | Organization | [facility] | | | and [...] Team Providers + +------+ + | Care Tester Vibrator Equipment Name | Role | Phone | + [...] | ORTHOPEDIC SURGERY | MD Kevin [address] [facility] | | | | | [address] [facility] | [place] | | | | | [place] | [address] | | | | | [address] | | | | | | [phone] | | | +--------+ + + + [...]
--- OUTSIDE RECORDS SUMMARY | ~2019-04-25 | XMS | Encounter Summary ---
Demographics + + + | Address | [address] | | | [place] [address] | + + + | Home Phone | | + + + | Preferred Language | Unknown | + + + | Marital Status | Unknown | + + + | Jewish Affiliation | Unknown | + + + | Race | Unknown | + + + | Ethnic Group | Unknown | + + + Author + + + | Author | [facility] | | | and [place] | + + + | Organization | [facility] | | [...] Team Providers + +------+ + | Care Electronics Tech Name | Role | Phone | + [...] | ORTHOPEDIC SURGERY | MD Kevin [address] [facility] | (Primary Dx) | | | | [address] [facility] | [place] | | | | | [place] | [address] | | | | | [address] | | | | | | [phone] | | | +--------+ + + + [...]
--- OUTSIDE RECORDS SUMMARY | ~2019-04-25 | XMS | Clinical Summary ---
Demographics + + + | Address | [address] | | | [place] [address] | + + + | Home Phone | | + + + | Preferred Language | Unknown | + + + | Marital Status | Single | + + + | Hinduism Affiliation | Unknown | + + + | Race | Unknown | + + + | Ethnic Group | Unknown | + + + Author + + + | Author | [facility] (Historical as of | | | 01-30-19) | + + + | Organization | [facility] (Historical as of | | | 01-30-19) [...] Team Providers + +------+ + | Care Chronometer Adjuster Name | Role | Phone | + [...] | | | | | injectionIndications | Eth-Gqujtrh-Jzbbvjnj | | | | | | | [...] +------+-------+ + | PREMERA | PREMER | [id number] | | | [address] [address] | | | A BLUE | 7 | | | [place], [place] | | | CARD | | | | [address] | +---------+--------+ +------+-------+ + + +--------+ +--------+ [...] | 1966 | [phone] | [place] [address] | | | jovan | | | [phone] | | + +--------+ +--------+ + +
--- OUTSIDE RECORDS SUMMARY | ~2019-04-25 | XMS | Encounter Summary ---
Demographics + + + | Address | [address] | | | [place] [address] | + + + | Home Phone | | + + + | Preferred Language | Unknown | + + + | Marital Status | Unknown | + + + | Sikh Affiliation | Unknown | + + + | Race | Unknown | + + + | Ethnic Group | Unknown | + + + Author + + + | Author | [facility] | | | and [place] | + + + | Organization | [facility] | | | [...] Team Providers + +------+ + | Care Gun Stock Checker Name | Role | Phone | + [...] [place], [place] | | | | | ID MOTOR | [place] | [address] Phone: | | | | | &/SENS 1-2 | [address] | [phone] | | | | | NRV CNDJ | Phone: | Fax: | | | | | PRECONF | [phone] | [phone] | | | | | ELTRODE LIMB | Fax: | | | | | | NCS-right | [phone] | | | | | | wrist [...] syndrome of right | | | | Eme[place], | [place] | wrist (Primary Dx) | | | | [place] [address] | [address] | | | | | [phone] | | | +--------+ + + + [...] Cary MD - 11/22/2013 12:38 PM PDT [facility] Mus[facility], Sports and Spine, Physiatry [address] [place] [address] Test Date: 11/22/2013 Patient Name: Meghan Ledesma : 1965 Physician: Hang Cary MD MR #: [id number] Sex: Female Referring Physician: Liam Penny PA-C [...] hesitate to call. Hang Cary MD Fellow, [employer]. documented in th is encounter Plan of Treatment Not on filedocumented as of this encounter Visit Diagnoses + + | Diagnosis | + + | Carpal tunnel syndrome of right wrist - Primary Carpal tunnel syndrome | + + documented in this encounter
--- OUTSIDE RECORDS SUMMARY | ~2019-04-25 | XMS | Encounter Summary ---
Demographics + + + | Address | [address] | | | [place] [address] | + + + | Home Phone | | + + + | Preferred Language | Unknown | + + + | Marital Status | Unknown | + + + | Holiness Affiliation | Unknown | + + + | Race | Unknown | + + + | Ethnic Group | Unknown | + + + Author + + + | Author | [facility] | | | and [place] | + + + | Organization | [facility] | | [...] Team Providers + +------+ + | Care Chip Bin Conveyor Tender Name | Role | Phone | + [...] + + | 01/24/ | [facility] | Que Santos | Carpal tunnel | | 2013 | Visit | ORTHOPEDIC SURGERY | MD Kevin [address] [facility] | syndrome of right | | | | 380 [facility] | [place] | wrist (Primary Dx) | | | | [place], [place] | [address] | | | | | [address] | | | | | | [phone] | | | +--------+---------+ + + + [...]
--- OUTSIDE RECORDS SUMMARY | ~2019-04-25 | XMS | Encounter Summary ---
Demographics + + + | Address | [address] | | | [place] [address] | + + + | Home Phone | | + + + | Preferred Language | Unknown | + + + | Marital Status | Unknown | + + + | Yazidi Affiliation | Unknown | + + + [...] Team Providers + +------+ + | Care Brass Cutter Name | Role | Phone | + [...] | | | | | | | AL REVISE | | | | | | [...] + + | 01/26/ | Hospital | [facility] | Que Santos | Carpal tunnel | | 2013 | Encounter | MED CTR OR INTRA OP | MD Kevin [address] [facility] | syndrome of right | | | | [address] | [place] | wrist (Primary Dx) | | | | [place] | [address] | | | | | [address] | | | | | | [phone] | | | +--------+ + + + [...] your wrist to reduce swelling for the [id number]. Leave the ice pack on [id number] nutes; then take it off [id number]. Repeat as needed. Keep your arm elevated above your heart [id number] after surgery. Do the exercises you learned [...] incision (cut) Opening of the incision Fever krnni094.4F(38.9C) taken by mouth, or shaking chills Any new numbness in the fingers or thumb Blue hand or fingers Increased pain with or without activity Increased redness, tenderness, or swelling of the incision [id number] [facility], [address] [place] [address], [place] [address]. All rights reserve d. This information is [...] may interact with prescription medicines or other rjds-dhl-aibzkuc (OTC) drugs. The FDA recommends reading OTC medication labels careful ly to clearly understand the list of active ingredients, directions, and any precautions to help avoid taking too muchacetaminophen. If you have questions, ask your pharmacist or [facility] care provider. Managing Nausea Some [...] or skin changes (rash, itching, or hives). 8816-8976 [facility], [address] [place] [address], [place] [address]. All rights reserve d. This information is [...] + | [facility] | [address] | [place] | [phone] | | [facility] | | [address] | | | - LABORATORY | | | | + + + + + | [facility] | [address] | [place] | | | [facility] | | [address] | | | - LABORATORY | | [...] - 1.030 | [facility] | | | [facility] | | | [facility] | | [...] + | [facility] | [address] | [place] | [phone] | | [facility] | | [address] | | | - LABORATORY | | | | + + + + + | [facility] | [address] | [place] | | | [facility] | | [address] | | | - LABORATORY | | [...] | mL/min/1.73m2 | [facility] | | | [place] | RATE,ESTIMATED | | MEDICAL | | | | mL/min/1.49e8Cqca than | | CENTER - | | [...] [address] | [place] | [phone] | | [facility] | | [address] | | | - LABORATORY | | | | + + + + + | [facility] | [address] | [place] | | | [facility] | | [address] | | | - LABORATORY | | [...] + | [facility] | [address] | [place] | [phone] | | [facility] | | [address] | | | - LABORATORY | | | | + + + + + | [facility] | [address] | [place], [place] | | | [facility] | | [address] | | | - LABORATORY | | [...]
--- OUTSIDE RECORDS SUMMARY | ~2019-04-25 | XMS | Clinical Summary ---
Demographics + + + | Address | [address] | | | [place] [address] | + + + | Home Phone | | + + + | Preferred Language | Unknown | + + + | Marital Status | Single | + + + | Moravian Affiliation | EPI | + + + [...] Team Providers + +------+ + | Care Group Activities Aide Name | Role | Phone | + +------+ + PCP | Unavailable | + +------+ + Source Comments [facility] is fully live on both [facility] Ambulatory and [facility] InPatient.[facility] Allergies Not on File Medications Not on [...]
--- OUTSIDE RECORDS SUMMARY | ~2019-04-25 | XMS | Encounter Summary ---
Demographics + + + | Address | [address] | | | [place] [address] | + + + | Home Phone | | + + + | Preferred Language | Unknown | + + + | Marital Status | Unknown | + + + | Advent Affiliation | Unknown | + + + | Race | Unknown | + + + | Ethnic Group | Unknown | + + + Author + + + | Author | [facility] | | | and [place] | + + + | Organization | [facility] | | [...] Team Providers + +------+ + | Care Pigs Feet Finisher Name | Role | Phone | + [...] | MD Kevin [address] [facility] | removal, surgical | | | | 380 [facility] | [place] | wound (Primary Dx); | | | | [place] | [address] | Aftercare for | | | | [address] | | fitting and | | | | [phone] | | adjustment of brace | +--------+ [...]
--- OUTSIDE RECORDS SUMMARY | ~2019-04-25 | XMS | Encounter Summary ---
Demographics + + + | Address | [address] | | | [place] [address] | + + + | Home Phone | | + + + | Preferred Language | Unknown | + + + | Marital Status | Unknown | + + + | Tenriism Affiliation | Unknown | + + + | Race | Unknown | + + + | Ethnic Group | Unknown | + + + Author + + + | Author | [facility] | | | and [place] | + [...] Team Providers + +------+ + | Care Bath Steward/Stewardess Name | Role | Phone | + [...] + + + + | 01/24/ | Telephone | [facility] | Que Santos | Other | | 2013 | | ORTHOPEDIC SURGERY | MD Kevin [address] [facility] | | | | | 380 [facility] | [place] | | | | | [place] | [address] | | | | | [address] | | | | | | [phone] | | | +--------+ + + + [...]
--- OUTSIDE RECORDS SUMMARY | ~2019-04-25 | XMS | Encounter Summary ---
Demographics + + + | Address | [address] | | | [place] [address] | + + + | Home Phone | | + + + | Preferred Language | Unknown | + + + | Marital Status | Unknown | + + + | Rastafari Affiliation | Unknown | + + + | Race | Unknown | + + + | Ethnic Group | Unknown | + + + Author + + + | Author | [facility] | | | and [place] | + + + | Organization | [facility] | | [...] Team Providers + +------+ + | Care Technology Assistant Name | Role | Phone | + [...] | ORTHOPEDIC SURGERY | MD Kevin [address] [facility] | | | | | 380 [facility] | [place] | | | | | [place] | [address] | | | | | [address] | | | | | | [phone] | | | +--------+ + + + [...]
--- OUTSIDE RECORDS SUMMARY | ~2019-04-25 | XMS | Encounter Summary ---
Demographics + + + | Address | [address] | | | [place] [address] | + + + | Home Phone | | + + + | Preferred Language | Unknown | + + + | Marital Status | Unknown | + + + | Buddhist Affiliation | Unknown | + + + | Race | Unknown | + + + | Ethnic Group | Unknown | + + + Author + + + | Author | [facility] | | | and [place] | + + + | Organization | [facility] | | | [...] Team Providers + +------+ + | Care Furniture Builder Name | Role | Phone | + [...] | | | | tunnel | [place] [address] | Surgery [address] | | | | | syndrome | [address] | [address] | | | | | | WAY | [place], | | | | | | [place] | | | | | | [place] [address] | [address] | | | | | | Phone: | Phone: | | | | | | [phone] | [phone] | | | | | | Fax: | Fax: | | | | | | [phone] | [phone] | +--------+--------+ + + + + Encounter Details +--------+---------+ + + + | Date | Type | Department | Care Team | Description | +--------+---------+ + + + | 11/23/ | Office | [facility] | Que Santos | Right wrist pain | | 2013 | Visit | ORTHOPEDIC SURGERY | MD Kevin [address] [facility] | (Primary Dx); Carpal | | | | [address] [facility] | [place] | tunnel syndrome of | | | | [place], [place] | [address] | right wrist | | | | [address] | | | | | | [phone] | | | +--------+---------+ + + + [...] - 11/23/2013 7:28 PM PDTShimon krishnan note [id number].Electronically nima d by Que Santos MD at 11/23/2013 7:28 PM Que Sparrow MD - 11/23/2013 12:00 AM PDT ORTHOPEDICS [address] [place] [address] FAX: [phone] OFFICE VISIT IDENTIFICATION: Meghan Ledesma is a 47-year-old female who lives in [place], [place]. CHIEF COMPLAINT: Right hand numbness, pain, [...] Santos MD RH / RS JOB #: [id number] signed by Que Santos MD at 12/28/2013 [...] + + | Performing | Address | City/State[facility] | Phone Number | | Organization | | | | + +---------+ + + | MISCELLANEOUS LAB | | | [phone] | + +---------+ + + | MISCELANIOUS LAB | | | [phone] | + +---------+ + + documented in this encounter Visit Diagnoses + + | Diagnosis | + + | Right wrist pain - Primary Pain in joint, forearm | + + | Carpal tunnel syndrome of right wrist Carpal tunnel syndrome | + + documented in this encounter
--- OUTSIDE RECORDS SUMMARY | ~2019-04-25 | XMS | Encounter Summary ---
Demographics + + + | Address | [address] | | | [place] [address] | + + + | Home Phone | | + + + | Preferred Language | Unknown | + + + | Marital Status | Unknown | + + + | Mandaen Affiliation | Unknown | + + + | Race | Unknown | + + + | Ethnic Group | Unknown | + + + Author + + + | Author | [facility] | | | and [place] | + + + | Organization | [facility] | | | [...] Team Providers + +------+ + | Care Sweatband Maker Name | Role | Phone | + +------+ + | Prince Penny PA-C | PCP | | + +------+ + Encounter Details +--------+ + + + + | Date | Type | Department | Care Team | Description | +--------+ + + + + | 11/23/ | Hospital | [facility] | Que Santos | Right wrist pain | | 2013 | Encounter | MED [facility] | MD Kevin [address] [facility] | | | | | [address] [place] | [place] | | | | | [place] | [address] | | | | | [address] | | | | | | [phone] | | | +--------+ + + + [...] + | MISCELLANEOUS LAB | | | [phone] | + +---------+ + + | MISCELANIOUS LAB | | | [phone] | + +---------+ + + documented in this encounter Visit Diagnoses + + | Diagnosis | + + | Right wrist pain Pain in joint, forearm | + + documented in this encounter"
--- OUTSIDE RECORDS SUMMARY | 2019-04-25 08:28 | XMS ---
PreManage Notification: KARISSA SANTOS Security Carpenter Ship Events No recent Security Events currently on file CRITERIA MET - ISREAL CARE PROVIDERS GUILLERMO SALVADOR Internal Medicine Current PHONE: Unknown GLORIA LOERA Physician 02/12/2019-Current PHONE: Unknown Harish Estevez MD Primary Care Current PHONE: Unknown GUILLERMO SALVADOR Primary Care Current PHONE: Unknown orbilly Case or Crtts Current PHONE: Unknown Bronson ESTEVEZ Current PHONE: Unknown Stephanie has no Care Guidelines for this patient. Vicky VISIT COUNT (12 MO.) 3 LENORE Soto TOTAL 3 NOTE: Visits indicate total known visits. ED/UCC VISIT TRACKING (12 MO.) 04/25/2019 08:26 [facility] Etienne [place] TYPE: Emergency COMPLAINT: - BACK PAIN NON INJURY 02/11/2019 21:27 [facility] [place] TYPE: Emergency COMPLAINT: - LEFT HIP PAIN, UNKNOWN INJURY DIAGNOSES: - Allergy status to penicillin - Allergy status to oth drug/meds/biol subst status - Essential (primary) hypertension - supercalender operator helper (current) use of aspirin - Other detention (current) drug therapy - 1 Type 2 diabetes mellitus without complications - Cutaneous abscess of abdominal wall - Other bursitis of hip, left hip - Pain in left hip - Nicotine dependence, unspecified, uncomplicated - supercalender operator helper (current) use of insulin 10/04/2018 20:22 [facility] Etienne [place] TYPE: Emergency COMPLAINT: - POSS ABCESS ON R BREAST DIAGNOSES: - Allergy status to penicillin - Nicotine dependence, unspecified, uncomplicated - Allergy status to oth drug/meds/biol subst status - prison (current) use of aspirin - 1 Type 2 diabetes mellitus without complications - supercalender operator helper (current) use of insulin - Other detention (current) drug therapy - Essential (primary) hypertension - Abscess of the breast and nipple - Encounter for immunization INPATIENT VISIT TRACKING (12 MO.) No inpatient visits to display in this time frame [email or web address]
== END 2019-04-25 09:41 | disposition home or self-care (01) ==
LOC: ED 08:26
DX: M54.5 Low back pain (principal); M25.552 Pain in left hip; M79.2 Neuralgia and neuritis, unspecified; E11.9 Type 2 diabetes mellitus without complications; I10 Essential (primary) hypertension; E03.9 Hypothyroidism, unspecified; F17.200 Nicotine dependence, unspecified, uncomplicated; Z88.0 Allergy status to penicillin; Z88.8 Allergy status to other drugs, medicaments and biological substances; Z79.899 Other long term (current) drug therapy; Z79.4 Long term (current) use of insulin; Z79.82 Long term (current) use of aspirin
CPT/HCPCS: 96372; 99283; J1170; J1885

== ENCOUNTER 2024-05-25 14:54 | Emergency (ER) | payer BC, OTHER ==
[~2024-05-25] VITALS: Ht 162.6 cm; Wt 97.3 kg
[2024-05-25] MEDS ORDERED: OZEMPIC2 MG/0.75 SUB-Q (15:14)
[2024-05-25] MEDS ORDERED: NOVOLOG FL100 UNIT/1 SUB-Q (15:14)
[2024-05-25] MEDS ORDERED: AMLODIPINE BESY10 MG PO (15:14)
[2024-05-25] MEDS ORDERED: AZITHROMYCIN250 MG PO (15:14)
[2024-05-25] MEDS ORDERED: ANASTROZOLE1 MG PO (15:15)
[2024-05-25] MEDS ORDERED: ondansetron HCL 4 MG/2 ML VIAL IV ONE (15:15)
[2024-05-25] MEDS ORDERED: SODIUM CHLORIDE 0.9% 1,000 ML IV PRN (15:15)
[2024-05-25] MEDS ORDERED: TETRACAINE HCL 0.5% 4 ML BTL OD SCH (15:30)
[2024-05-25 15:46] LABS: BASOPHILS 0.4 % (0-2); EOSINOPHILS 0.3 % (0-6); HEMOGLOBIN 13.6 g/dL (12.0-18.0); LYMPHOCYTES 22.2 % (24-44); MCH 27.4 (27-36); MCV 80.7 fl (81-99); MONOCYTES 7.3 % (0-12); NEUTROPHILS 69.8 % (39-80); PLATELET COUNT 346 K/uL (140-440); RBC 4.96 M/ul (4.3-5.7); RDW 14.4 (10.5-15.0)
[2024-05-25 16:05] LABS: ALBUMIN 3.6 g/dL (3.4-5.0); ALBUMIN/GLOBULIN RATIO 0.8 (1.1-2.4); ANION GAP 13.8 (7-21); BILIRUBIN, TOTAL 0.4 ng/dL (0.2-1.0); BUN/CREATININE RATIO 15.27 (6.0-28.6); CALCIUM 8.9 mg/dL (8.5-10.1); CREATININE, SERUM 0.72 mg/dL (0.55-1.02); POTASSIUM 3.8 mmol/L (3.5-5.1); PROTEIN, TOTAL 8.1 g/dL (6.4-8.2)
[2024-05-25] MEDS ORDERED: CEPHALEXIN500 M1 PO (17:39)
[2024-05-25] MEDS ORDERED: NAPROSYN500 MG PO (17:39)
[2024-05-25] MEDS ORDERED: ACETAMINOPHEN 500 MG TAB PO ONE (17:45)
[2024-05-25] MEDS ORDERED: KETOROLAC TROMETHAMINE 15 MG/ML VIAL IV ONE (17:45)
[2024-05-25] MEDS ORDERED: CEFTRIAXONE/SODIUM CHLORIDE 2 GM/100 ML PIGGYBACK IV ONE (17:45)
[2024-05-25 18:43] VITALS: BP 172/76
== END 2024-05-25 18:44 | disposition home or self-care (01) ==
LOC: ED 14:54
PROVIDERS: Emergency Medicine
DX: L03.213 Periorbital cellulitis (principal); I10 Essential (primary) hypertension; E11.9 Type 2 diabetes mellitus without complications; E03.9 Hypothyroidism, unspecified; Z88.8 Allergy status to other drugs, medicaments and biological substances; Z88.0 Allergy status to penicillin; Z79.4 Long term (current) use of insulin; Z79.85 Long-term (current) use of injectable non-insulin antidiabetic drugs; Z79.84 Long term (current) use of oral hypoglycemic drugs; Z79.82 Long term (current) use of aspirin; Z79.899 Other long term (current) drug therapy
CPT/HCPCS: 36415; 70487; 80053; 85025; 96361; 99284-25; A9270; J0696; J1885; J2405; J7030; Q9967